=== PATIENT | female | born 1965 | race Caucasian/White ===

== ENCOUNTER 2018-05-21 11:54 | Emergency (ER) | payer OTHER ==
[2018-05-21] MEDS ORDERED: ONDANSETRON 4 MG/2 ML VIAL ONE (12:56)
[2018-05-21] MEDS ORDERED: FAMOTIDINE 20 MG/2 ML VIAL IV ONE (12:56)
[2018-05-21] MEDS ORDERED: NA CHLORIDE 0.9% 1,000 ML ONE (12:56)
[2018-05-21] MEDS ORDERED: MORPHINE 4 MG/ML SYR ONE (12:56)
[2018-05-21 13:02] LABS: Absolute Lymphocytes (CBC) 2.6 K/uL (0.7-4.9); Absolute Monocytes 0.6 K/uL (0.1-1.3); Absolute Neutrophil 5.3 K/uL (1.8-8.0); Basophils % 0.6 % (0-1.3); Eosinophils % 1.7 % (0-4.4); Lymphocytes % 29.9 % (15.3-44.8); MCH 29.4 pg (27.0-35.0); MCV 87.6 fL (80-100); MPV 8.5 fL (7.6-11.3); Monocytes % 7.2 % (3.3-12.3)
[2018-05-21 13:04] LABS: Protime INR 1.08
[2018-05-21 13:18] LABS: ALT/SGPT 37 U/L (12-78); AST/SGOT 36 U/L (15-37); Albumin 3.5 g/dL (3.4-5.0); Alkaline Phosphatase 121 U/L (45-117); BUN Blood Urea Nitrogen 10 mg/dL (7-18); Bicarbonate 25 mmol/L (21-32); Bilirubin Direct 0.2 mg/dL (0-0.2); Bilirubin Total 0.4 mg/dL (0.2-1.0); Glucose Level 161 mg/dL (74-106); Lipase 90 U/L (73-393); NT PRO-BNP 23 pg/mL (<125); Potassium 3.5 mmol/L (3.5-5.1); Sodium Level 138 mmol/L (136-145); Troponin (Emerg Dept Use Only) < 0.02 ng/mL (0.0-0.045)
--- NOTE | 2018-05-21 13:20 | RAD REPORT ---
EXAM DESCRIPTION: Alexy Single View05/21/2018 1:09 pm CLINICAL HISTORY: Abdominal pain COMPARISON: none FINDINGS: The lungs appear clear of acute infiltrate. The heart is normal size IMPRESSION: No acute abnormalities displayed
[2018-05-21 13:27] LABS: Urine Blood 2+ (NEG); Urine Glucose NEGATIVE (NEG); Urine Protein 1+ (NEG); Urine pH 5.5 (5.0-7.0)
--- NOTE | 2018-05-21 15:20 | RAD REPORT ---
EXAM DESCRIPTION: CT - Abdomen Pelvis W Contrast - 05/21/2018 2:56 pm CLINICAL HISTORY: Abdominal pain. Nausea COMPARISON: None. TECHNIQUE: Computed axial tomography of the abdomen and pelvis was obtained. 100 cc Isovue-300 is ad ministered intravenously. Oral contrast was given. All CT scans are performed using dose optimization technique as appropriate and may include automated exposure control or mA/KV adjustment according to patient size. FINDINGS: Fatty infiltration liver The Spleen, pancreas, adrenal and kidneys appear unremarkable. There is no evidence of diverticulitis. Fluid is present within nondilated bowel. Tiny umbilical hernia. Postsurgical changes involve lumbar spine IMPRESSION: Fluid within nondilated bowel may indicate an enteritis
--- NOTE | 2018-05-21 15:40 | EDPHYS ---
Physician Documentation [facility] Name: Abigail Goodrich Age: 52 yrs Sex: Female : 1965 Arrival Date: 05/21/2018 Time: 11:58 Bed 14 Private MD: ED Physician Lester Adame HPI: 05/21 12:26 This 52 yrs old Female presents to ER via Ambulatory with complaints of miriam Abdominal Pain. 12:26 The patient presents with abdominal pain in the upper abdomen, in the left upper miriam quadrant, abdominal distention in the upper abdomen, in the lower abdomen. Onset: The symptoms/episode began/occurred 3 day(s) ago. The patient presents to the emergency department with nausea, abdominal pain, of the left upper quadrant. Onset: The symptoms/episode began/occurred 3 day(s) ago. Possible causes: unknown. The symptoms are aggravated by nothing. Associated signs and symptoms: The patient has no apparent associated signs or symptoms. 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 - Social history:: Smoking status: Patient/guardian denies using tobacco. - Ebola Screening: : No symptoms or risks identified at this time. - Family history:: not pertinent. ROS: 12:26 Constitutional: Negative for fever, chills, and weight loss, Eyes: Negative for injury, miriam pain, redness, and discharge, ENT: Negative for injury, pain, and discharge, Neck: Negative for injury, pain, and swelling, Cardiovascular: Negative for chest pain, palpitations, and edema, Respiratory: Negative for shortness of breath, cough, wheezing, and pleuritic chest pain, Back: Negative for injury and pain, : Negative for injury, bleeding, discharge, and swelling, MS/Extremity: Negative for injury and deformity, Skin: Negative for injury, rash, and discoloration, Neuro: Negative for headache, weakness, numbness, tingling, and seizure, Psych: Negative for depression, anxiety, suicide ideation, homicidal ideation, and hallucinations, Allergy/Immunology: Negative for hives, rash, and allergies, Endocrine: Negative for neck swelling, polydipsia, polyuria, polyphagia, and marked weight changes, Hematologic/Lymphatic: Negative for swollen nodes, abnormal bleeding, and unusual bruising. 12:26 Abdomen/GI: Positive for abdominal pain, abdominal cramps, abdominal distension, of the left upper quadrant. Exam: 12:26 Constitutional: This is a well developed, well nourished patient who is awake, alert, miriam and in no acute distress. Head/Face: Normocephalic, atraumatic. Eyes: Pupils equal round and reactive to light, extra-ocular motions intact. Lids and lashes normal. Conjunctiva and sclera are non-icteric and not injected. Cornea within normal limits. Periorbital areas with no swelling, redness, or edema. ENT: Nares patent. No nasal discharge, no septal abnormalities noted. Tympanic membranes are normal and external auditory canals are clear. Oropharynx with no redness, swelling, or masses, exudates, or evidence of obstruction, uvula midline. Mucous membranes moist. Neck: Trachea midline, no thyromegaly or masses palpated, and no cervical lymphadenopathy. Supple, full range of motion without nuchal rigidity, or vertebral point tenderness. No Meningismus. Chest/axilla: Normal chest wall appearance and motion. Nontender with no deformity. No lesions are appreciated. Cardiovascular: Regular rate and rhythm with a normal S1 and S2. No gallops, murmurs, or rubs. Normal PMI, no JVD. No pulse deficits. Respiratory: Lungs have equal breath sounds bilaterally, clear to auscultation and percussion. No rales, rhonchi or wheezes noted. No increased work of breathing, no retractions or nasal flaring. Back: No spinal tenderness. No costovertebral tenderness. Full range of motion. Female : Normal external genitalia. Skin: Warm, dry with normal turgor. Normal color with no rashes, no lesions, and no evidence of cellulitis. MS/ Extremity: Pulses equal, no cyanosis. Neurovascular intact. Full, normal range of motion. Neuro: Awake and alert, GCS 15, oriented to person, place, time, and situation. Cranial nerves II-XII grossly intact. Motor strength 5/5 in all extremities. Sensory grossly intact. Cerebellar exam normal. Normal gait. Psych: Awake, alert, with orientation to person, place and time. Behavior, mood, and affect are within normal limits. 12:26 Abdomen/GI: Inspection: Bowel sounds: normal, Palpation: moderate abdominal tenderness, in the left upper quadrant, Liver: no appreciated palpable abnormalities, Hernia: not appreciated. 15:42 Musculoskeletal/extremity: DVT Exam: No signs of deep vein thrombosis. no pain, no miriam swelling, no tenderness, negative Homans' sign noted on exam, no appreciated bluish discoloration, no erythema, no increased warmth. Vital Signs: 12:09 BP 130 / 82; Pulse 84; Resp 22; Temp 96.8; Pulse Ox 100% ; Weight 108.86 kg; Height 5 sv ft. 5 in. (165.10 cm); Pain 4/10; 12:50 BP 130 / 85; Pulse 75; Resp 18 S; Pulse Ox 96% on R/A; jl7 13:30 BP 130 / 70; Pulse 77; Resp 16 S; Pulse Ox 96% on R/A; jl7 14:04 BP 113 / 87; Pulse 79; Resp 16 S; Pulse Ox 96% on R/A; Pain 1/10; jl7 15:10 BP 124 / 68; Pulse 75; Resp 17; Pulse Ox 97% on R/A; mh5 16:30 BP 126 / 70; Pulse 75; Resp 16 S; Pulse Ox 99% on R/A; jl7 12:09 Body Mass Index 39.94 (108.86 kg, 165.10 cm) sv MDM: 12:14 Patient medically screened. [facility] 12:29 Data reviewed: vital signs, nurses notes, lab test result(s), EKG, radiologic studies, [facility] CT scan, plain films. 05/21 12:25 Order name: Basic Metabolic Panel; Complete Time: 14:39 [facility] 05/21 12:25 Order name: CBC with Diff; Complete Time: 14:39 [facility] 05/21 12:25 Order name: LFT's; Complete Time: 14:39 [facility] 05/21 12:25 Order name: Magnesium; Complete Time: 14:39 [facility] 05/21 12:25 Order name: NT PRO-BNP; Complete Time: 14:39 [facility] 05/21 12:25 Order name: PT-INR; Complete Time: 14:39 [facility] 05/21 12:25 Order name: Troponin (emerg Dept Use Only); Complete Time: 14:39 [facility] 05/21 12:25 Order name: XRAY Chest (1 view); Complete Time: 14:39 [facility] 05/21 12:25 Order name: Lipase; Complete Time: 14:39 [facility] 05/21 12:25 Order name: Urine Culture [facility] 05/21 12:25 Order name: CT Abd/Pelvis - W/Contrast; Complete Time: 15:35 [facility] 05/21 12:38 Order name: Urine Dipstick--Ancillary (enter results); Complete Time: 14:39 05/21 12:38 Order name: Urine --Ancillary (enter results); Complete Time: 14:39 05/21 12:25 Order name: EKG; Complete Time: 12:27 [facility] 05/21 12:25 Order name: Cardiac monitoring; Complete Time: 13:02 [facility] 05/21 12:25 Order name: EKG - Nurse/Tech; Complete Time: 13:02 [facility] 05/21 12:25 Order name: IV Saline Lock; Complete Time: 13:02 [facility] 05/21 12:25 Order name: Labs collected and sent; Complete Time: 13:02 [facility] 05/21 12:25 Order name: O2 Per Protocol; Complete Time: 13:02 [facility] 05/21 12:25 Order name: O2 Sat Monitoring; Complete Time: 13:02 [facility] 05/21 12:25 Order name: Urine Dipstick-Ancillary (obtain specimen); Complete Time: 13:01 [facility] Administered Medications: 12:45 Drug: NS 0.9% 1000 ml Route: IV; Rate: 125 ml/hr; Site: left antecubital; jl7 16:06 Follow up: IV Status: Order to discontinue infusion; Changed rate to blous jl7 12:47 Drug: Pepcid 20 mg Route: IVP; Site: left antecubital; jl7 13:15 Follow up: Response: No adverse reaction jl7 12:55 Drug: Zofran 4 mg Route: IVP; Site: left antecubital; jl7 13:15 Follow up: Response: No adverse reaction jl7 12:58 Drug: morphine 4 mg Route: IVP; Site: left antecubital; 7 13:15 Follow up: Response: No adverse reaction; Pain is decreased 7 15:50 Drug: Cipro 400 mg Volume: 200 ml; Route: IVPB; Infused Over: 60 mins; Site: right jl7 antecubital; 16:50 Follow up: Response: No adverse reaction; IV Status: Completed infusion 7 16:05 Drug: Flagyl 500 mg Volume: 100 ml; Route: IVPB; Rate: 200 ml/hr; Infused Over: 30 jl7 mins; Site: right antecubital; 16:35 Follow up: Response: No adverse reaction; IV Status: Completed infusion 7 16:05 Drug: NS 0.9% 1000 ml Route: IV; Rate: 1 bolus; Site: right antecubital; 7 16:59 Follow up: IV Status: Completed infusion 7 Disposition: 05/21/18 15:39 Discharged to Home. Impression: Abdominal tenderness, Vomiting, Diarrhea, unspecified, Type 2 diabetes mellitus. - Condition is Stable. - Discharge Instructions: Food Choices to Help Relieve Diarrhea, Adult, Diarrhea, Adult, Nausea and Vomiting, Adult, Nausea and Vomiting, Adult, Qqrw-or-Dbme, Abdominal Pain, Adult, Yorg-mu-Ohdy, Diarrhea, Adult, Wuov-ga-Qrki. - Prescriptions for Bentyl 20 mg Oral Tablet - take 1 tablet by ORAL route every 6 hours As needed; 20 tablet. Flagyl 500 mg Oral Tablet - take 1 tablet by ORAL route every 12 hours for 7 days; 14 tablet. Pepcid 20 mg Oral Tablet - take 1 tablet by ORAL route every 12 hours for 10 days; 20 tablet. Zofran 4 mg Oral Tablet - take 1 tablet by ORAL route every 12 hours As needed; 20 tablet. Cipro 500 mg Oral Tablet - take 1 tablet by ORAL route every 12 hours for 7 days; 14 tablet. - Medication Reconciliation Form, Thank You Letter, Antibiotic Education, Prescription Opioid Use form. - Follow up: Private Physician; When: 2 - 3 days; Reason: Recheck today's complaints, Continuance of care, Re-evaluation by your physician. Follow up: Herbert Cuello MD; When: 2 - 3 days; Reason: Recheck today's complaints, Re-evaluation by your physician. - Problem is new. - Symptoms have improved. Signatures: Dispatcher [employer] Mercy Meredith, RN Lester James MD MD cha Leal, Jahala, RN RN jl7 Corrections: (The following items were deleted from the chart) 15:42 15:39 05/21/2018 15:39 Discharged to Home. Impression: Abdominal tenderness; Vomiting; miriam Diarrhea, unspecified. Condition is Stable. Forms are Medication Reconciliation Form, Thank You Letter, Antibiotic Education, Prescription Opioid Use. Follow up: Private Physician; When: 2 - 3 days; Reason: Recheck today's complaints, Continuance of care, Re-evaluation by your physician. Problem is new. Symptoms have improved. [facility] 15:42 15:42 05/21/2018 15:39 Discharged to Home. Impression: Abdominal tenderness; Vomiting; miriam Diarrhea, unspecified. Condition is Stable. Discharge Instructions: Food Choices to Help Relieve Diarrhea, Adult, Diarrhea, Adult, Nausea and Vomiting, Adult, Nausea and Vomiting, Adult, Yatq-aj-Dayo, Abdominal Pain, Adult, Vjan-xz-Ejsn, Diarrhea, Adult, Fies-yd-Apgo. Prescriptions for Bentyl 20 mg Oral Tablet - take 1 tablet by ORAL route every 6 hours As needed; 20 tablet, Flagyl 500 mg Oral Tablet - take 1 tablet by ORAL route every 12 hours for 7 days; 14 tablet, Pepcid 20 mg Oral Tablet - take 1 tablet by ORAL route every 12 hours for 10 days; 20 tablet, Zofran 4 mg Oral Tablet - take 1 tablet by ORAL route every 12 hours As needed; 20 tablet, Cipro 500 mg Oral Tablet - take 1 tablet by ORAL route every 12 hours for 7 days; 14 tablet. and Forms are Medication Reconciliation Form, Thank You Letter, Antibiotic Education, Prescription Opioid Use. Follow up: Private Physician; When: 2 - 3 days; Reason: Recheck today's complaints, Continuance of care, Re-evaluation by your physician. Follow up: Herbert Cuello; When: 2 - 3 days; Reason: Recheck today's complaints, Re-evaluation by your physician. Problem is new. Symptoms have improved. [facility] 17:01 15:42 05/21/2018 15:39 Discharged to Home. Impression: Abdominal tenderness; Vomiting; jl7 Diarrhea, unspecified; Type 2 diabetes mellitus. Condition is Stable. Discharge Instructions: Food Choices to Help Relieve Diarrhea, Adult, Diarrhea, Adult, Nausea and Vomiting, Adult, Nausea and Vomiting, Adult, Wfrc-ff-Qcxe, Abdominal Pain, Adult, Iurl-ak-Bglc, Diarrhea, Adult, Jhuw-yt-Acta. Prescriptions for Bentyl 20 mg Oral Tablet - take 1 tablet by ORAL route every 6 hours As needed; 20 tablet, Flagyl 500 mg Oral Tablet - take 1 tablet by ORAL route every 12 hours for 7 days; 14 tablet, Pepcid 20 mg Oral Tablet - take 1 tablet by ORAL route every 12 hours for 10 days; 20 tablet, Zofran 4 mg Oral Tablet - take 1 tablet by ORAL route every 12 hours As needed; 20 tablet, Cipro 500 mg Oral Tablet - take 1 tablet by ORAL route every 12 hours for 7 days; 14 tablet. and Forms are Medication Reconciliation Form, Thank You Letter, Antibiotic Education, Prescription Opioid Use. Follow up: Private Physician; When: 2 - 3 days; Reason: Recheck today's complaints, Continuance of care, Re-evaluation by your physician. Follow up: Herbert Cuello; When: 2 - 3 days; Reason: Recheck today's complaints, Re-evaluation by your physician. Problem is new. Symptoms have improved. miriam
--- NOTE | 2018-05-21 15:40 | ER ---
Nurse's Notes [facility] Name: Abigail Goodrich Age: 52 yrs Sex: Female : 1965 Arrival Date: 05/21/2018 Time: 11:58 Bed 14 Private MD: Diagnosis: Abdominal tenderness;Vomiting;Diarrhea, unspecified;Type 2 diabetes mellitus Presentation: 05/21 12:06 Presenting complaint: Patient states: LLQ pain, nausea and diarrhea started Sunday. c/o sv pain worse with deep breathing. Transition of care: patient was not received from another setting of care. Onset of symptoms was May 19, 2018. Care prior to arrival: None. 12:06 Method Of Arrival: Ambulatory sv 12:06 Acuity: FERDINAND 3 sv 16:07 Risk Assessment: Do you want to hurt yourself or someone else? Patient reports no jl7 desire to harm self or others. Initial Sepsis Screen: Does the patient meet any 2 criteria? Yes Does the patient have a suspected source of infection? No. Patient's initial sepsis screen is negative. 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 - Social history:: Smoking status: Patient/guardian denies using tobacco. - Ebola Screening: : No symptoms or risks identified at this time. - Family history:: not pertinent. Screenin:04 Abuse screen: Denies threats or abuse. Denies injuries from another. Nutritional jl7 screening: No deficits noted. Tuberculosis screening: No symptoms or risk factors identified. Fall Risk IV access (20 points). Total Rene Fall Scale indicates No Risk (0-24 pts). Assessment: 12:30 General: Appears in no apparent distress. uncomfortable, Behavior is calm, cooperative, jl7 appropriate for age. Pain: Complains of pain in left upper quadrant Pain does not radiate. Pain currently is 2 out of 10 on a pain scale. at worst was 9 out of 10 on a pain scale. Is intermittent. Neuro: Level of Consciousness is awake, alert, obeys commands, Oriented to person, place, time, situation. Cardiovascular: Patient's skin is warm and dry. Respiratory: Airway is patent Respiratory effort is even, unlabored, Respiratory pattern is regular, symmetrical. GI: Abdomen is round non-distended, Stools are reported to be diarrhea. Bowel sounds present X 4 quads. Abd is soft and non tender X 4 quads. : No signs and/or symptoms were reported regarding the genitourinary system. EENT: No signs and/or symptoms were reported regarding the EENT system. Derm: Skin is pink, warm \T\ dry. Musculoskeletal: No signs and/or symptoms reported regarding the musculoskeletal system. 14:07 Reassessment: Patient appears in no apparent distress at this time. Patient and/or [facility] family updated on plan of care and expected duration. Pain level reassessed. Patient is alert, oriented x 3, equal unlabored respirations, skin warm/dry/pink. 15:09 Reassessment: Pt returned from CT, reports mild increase in pain, reports she does not [facility] want any medication for pain at this time, reports the pain isn't too bad at this time. 15:42 Reassessment: Pt will be discharged once medications are finished infusing. jl 16:30 Reassessment: Patient appears in no apparent distress at this time. No changes from [facility] previously documented assessment. Patient and/or family updated on plan of care and expected duration. Pain level reassessed. Patient is alert, oriented x 3, equal unlabored respirations, skin warm/dry/pink. Vital Signs: 12:09 BP 130 / 82; Pulse 84; Resp 22; Temp 96.8; Pulse Ox 100% ; Weight 108.86 kg; Height 5 sv ft. 5 in. (165.10 cm); Pain 4/10; 12:50 BP 130 / 85; Pulse 75; Resp 18 S; Pulse Ox 96% on R/A; jl7 13:30 BP 130 / 70; Pulse 77; Resp 16 S; Pulse Ox 96% on R/A; jl7 14:04 BP 113 / 87; Pulse 79; Resp 16 S; Pulse Ox 96% on R/A; Pain 1/10; jl7 15:10 BP 124 / 68; Pulse 75; Resp 17; Pulse Ox 97% on R/A; mh5 16:30 BP 126 / 70; Pulse 75; Resp 16 S; Pulse Ox 99% on R/A; jl7 12:09 Body Mass Index 39.94 (108.86 kg, 165.10 cm) sv ED Course: 11:58 Patient arrived in ED. rg4 12:07 Triage completed. sv 12:09 Arm band placed on Patient placed in an exam room, on a stretcher. sv 12:14 Lester Adame MD is Attending Physician. miriam 12:15 Renae Islas RN is Primary Nurse. jl7 12:35 Missed attempt(s): 22 gauge in left forearm. jl7 12:40 Initial lab(s) drawn, by pa, sent to lab. Inserted saline lock: 22 gauge in left jl7 antecubital area, using aseptic technique. Blood collected. 12:54 EKG done, by technical instructor course developer. reviewed by Lester Adame MD. dt2 13:04 Patient has correct armband on for positive identification. Placed in gown. Bed in low jl7 position. Call light in reach. Side rails up X 1. monitor and storage bin tender on. Pulse ox on. NIBP on. Warm blanket given. 13:10 XRAY Chest (1 view) In Process Unspecified. EDMS 14:54 CT completed. Patient tolerated procedure well. Patient moved to CT via wheelchair. Patient moved back from CT. 14:56 CT Abd/Pelvis - W/Contrast In Process Unspecified. EDMS 15:42 Herbert Cuello MD is Referral Physician. miriam 16:30 No provider procedures requiring assistance completed. IV discontinued, intact, jl7 bleeding controlled, No redness/swelling at site. Pressure dressing applied. Administered Medications: 12:45 Drug: NS 0.9% 1000 ml Route: IV; Rate: 125 ml/hr; Site: left antecubital; jl7 16:06 Follow up: IV Status: Order to discontinue infusion; Changed rate to blous jl7 12:47 Drug: Pepcid 20 mg Route: IVP; Site: left antecubital; jl7 13:15 Follow up: Response: No adverse reaction jl7 12:55 Drug: Zofran 4 mg Route: IVP; Site: left antecubital; jl7 13:15 Follow up: Response: No adverse reaction jl7 12:58 Drug: morphine 4 mg Route: IVP; Site: left antecubital; jl7 13:15 Follow up: Response: No adverse reaction; Pain is decreased jl7 15:50 Drug: Cipro 400 mg Volume: 200 ml; Route: IVPB; Infused Over: 60 mins; Site: right jl7 antecubital; 16:50 Follow up: Response: No adverse reaction; IV Status: Completed infusion jl7 16:05 Drug: Flagyl 500 mg Volume: 100 ml; Route: IVPB; Rate: 200 ml/hr; Infused Over: 30 jl7 mins; Site: right antecubital; 16:35 Follow up: Response: No adverse reaction; IV Status: Completed infusion jl7 16:05 Drug: NS 0.9% 1000 ml Route: IV; Rate: 1 bolus; Site: right antecubital; jl7 16:59 Follow up: IV Status: Completed infusion jl7 Outcome: 15:39 Discharge ordered by MD. pineda 17:01 Discharged to home ambulatory. jl7 17:01 Condition: stable 17:01 Discharge instructions given to patient, Instructed on discharge instructions, follow up and referral plans. medication usage, Demonstrated understanding of instructions, follow-up care, medications. 17:01 Patient left the ED. Signatures: Dispatcher [employer] Mercy Meredith RN RN sv Anderson, Corey, MD MD cha Jones, Susan sj Garcia, Rubi rg4 Martinez, Maria Renae Cortez RN RN jl7 Yohana Jara dt2
[2018-05-21] MEDS ORDERED: METRONIDAZOLE 500mg IVPB 500 MG/100 ML BAG IV ONE (15:54)
[2018-05-21] MEDS ORDERED: CIPROFLOXACIN 400mg IV 400 MG/200 ML BAG IV ONE (15:54)
--- NOTE | 2018-05-21 22:41 | EKG ---
Test Date: 2018-05-21 Test Time: 12:46:34 Slag Expander: GIANNI MEASUREMENT RESULTS: Intervals: Rate: 67 RI: 162 QRSD: 68 QT: 428 QTc: 452 [place]: P: 38 RI: 162 QRS: 9 T: 50 INTERPRETIVE STATEMENTS: Normal sinus rhythm Nonspecific T wave abnormality Abnormal ECG No previous ECG available for comparison Electronically Signed On 05-21-18 22:40:24 SUPERVISOR [employer] OFFICE by Gulshan Connor
== END 2018-05-21 17:01 | disposition home or self-care (01) ==
LOC: ER 11:54
DX: R11.10 Vomiting, unspecified (principal); R19.7 Diarrhea, unspecified; E11.9 Type 2 diabetes mellitus without complications; I10 Essential (primary) hypertension; Z88.5 Allergy status to narcotic agent; Z88.8 Allergy status to other drugs, medicaments and biological substances; Z91.040 Latex allergy status; Z91.048 Other nonmedicinal substance allergy status
CPT/HCPCS: 36415; 71045; 74177; 80048; 80076; 81003; 81025; 83690; 83735; 83880; 84484; 85025; 85610; 87077; 87086; 87088; 87186; 93005; 96361; 96365; 96375; 99285; J0744; J2405; J7030; Q9967

== ENCOUNTER 2020-12-04 15:56 | Emergency (ER) | payer OTHER ==
--- OUTSIDE RECORDS SUMMARY | 2020-12-04 16:01 | XMS REPORT | Continuity of Care Document ---
:1965 Author Organization [facility] t Address [address] [place] [address] Care Team Providers Name Role Phone Alexis Vieyra Attending Clinician Tomy Patterson Attending Clinician Payers Payer Name Policy Type Policy Number Effective Date Expiration Date S ource Problems Condition Condition Condition Status Onset Resolution Last Treating Co mments Source Name Details Category Date Date Treatment Clinician Date Steatosis Steatosis Problem Active Kori marvel of liver of Liver 4-05 Family 00:00: Practic 00 e Systemic Systemic Problem Active 2019-06 Knight ge lupus Lupus 2-18 Family erythemato Erythemato 00:00: Pr actic vibha vibha 00 e Anxiety Anxiety Problem Active [place] disorder Disorder 3-19 Family 00:00: Practic 00 e Osteoarthr Osteoarthr Problem Active 2018-06 V illage itis itis 1-15 Family 00:00: Practic 00 e Fibromyalg Fibromyalg Problem Active 2018-06 V illage ia ia 1-15 Family 00:00: Practic 00 e Irritable Irritable Problem Active Kori marvel bowel Bowel 5-16 Family syndrome Syndrome 00:00: Practi c 00 e SORE Diagnosis Active 2018-08-18 Mem oria THROAT 3-03 12:33:00 l SORE 00:00: Serafin THROAT 00 Active 08/18/2018 [facility] Insomnia Insomnia Problem Active Eugene aguilera 9-12 Family 00:00: Practic 00 e Body mass Body Mass Problem Active Kori marvel index 40+ Index 40+ 1-09 Fami ly - severely - Severely 00:00: Pr actic obese Obese 00 e Diabetes Diabetes Problem Active Eugene aguilera mellitus Mellitus 1-08 Family 00:00: Practic 00 e Hyperlipid Hyperlipid Problem Active V illage emia emia 1-08 Family 00:00: Practic 00 e Depressive Depressive Problem Active V illage disorder Disorder 1-08 Family 00:00: Practic 00 e Obstructiv Obstructiv Problem Active V illage e sleep e Sleep 08 Family apnea Apnea 00:00: Practic syndrome Syndrome 00 e Hypertensi Hypertensi Problem Active V illage ve ve -08 Family disorder Disorder 00:00: Practi c 00 e Atrial Atrial Problem Active [facility]illati [facility] e Seasonal Seasonal Problem Active Eugene aguilera allergy Allergy 1-08 Family 00:00: Practic 00 e Conduction Problem Active 2018-08-20 M emoria disorder 09-25 22:50:41 l of the 00:00: [place] heart 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 [facility] Knee pain Problem Active 2018-08-20 Me moria (finding) 10-06 22:50:41 l Knee 00:00: [place] pain 00 (finding) Active 10/06/2013 Problem 08/20/2018 Data migrated from [employer] on 11/16/14. [facility] Mixed Problem Active 2018-08-20 Memor ia anxiety 6-14 22:50:41 l and Mixed 00:00: Serafin depressive anxiety 00 disorder and (disorder) depressive disorder (disorder) Active 11/29/2012 Problem 08/20/2018 Data migrated from [employer] on 11/16/14. [facility] Low back Problem Active 2018-08-20 Mem oria pain 06-26 22:50:41 l (disorder) Low back 00:00: He rmann pain 00 (disorder) Active 06/26/2012 Problem 08/20/2018 Data migrated from [employer] on 11/16/14. [facility] Hyperlipid Problem Active 2018-08-20 M emoria emia 08-18 22:50:41 l (disorder) 00:00: Pastor valdez Hyperlipid 00 emia (disorder) Active 08/18/2010 Problem 08/20/2018 Data migrated from [employer] on 11/16/14. [facility] Diabetes Problem Active 2018-08-20 Mem oria mellitus 11-21 22:50:41 l type 2 Diabetes 00:00: Pastor valdez (disorder) mellitus 00 type 2 (disorder) Active 11/22/2007 Problem 08/20/2018 Data migrated from [employer] on 11/16/14. [facility] Lupus Problem Active 2018-08-20 Memor ia erythemato 22:50:41 l vibha Lupus Serafin (disorder) erythemato vibha (disorder) Active Problem 08/20/2018 [facility] Persistent Problem Active 2018-08-20 M emoria insomnia 22:50:41 l (disorder) Pastor valdez Persistent insomnia (disorder) Active Problem 08/20/2018 [facility] Streptococ Problem Resolve 2018-08-20 2018-08-20 Memoria chantale sore d - 22:50:41 22:50:41 l throat 00:00: Serafin (disorder) Streptococ 00 chantale sore throat (disorder) Resolved 09/07/2010 Problem 08/20/2018 Data migrated from [employer] on 01/01/15. [facility] Pharyngiti Problem Resolve 2009-062018-08-20 2018-08-20 Memoria s d 2-14 22:50:41 22:50:41 l (disorder) 00:00: Pastor valdez Pharyngiti 00 s (disorder) Resolved 05/31/2010 Problem 08/20/2018 Data migrated from [employer] on 01/01/15. [facility] Cellulitis Problem Resolve 2018-08-20 2018-08-20 Memoria and d 11-21 22:50:41 22:50:41 l abscess of 00:00: Pastor n lower limb Cellulitis 00 (disorder) and abscess of lower limb (disorder) Resolved 11/22/2007 Problem 08/20/2018 Data migrated from [employer] on 01/01/15. [facility] Influenza Problem Resolve 2018-08-20 2018-08-20 Memoria (disorder) d 08-13 22:50:41 22:50:41 l 00:00: Serafin Influenza 00 (disorder) Resolved 08/13/2007 Problem 08/20/2018 Data migrated from [employer] on 01/01/15. [facility] Cellulitis Problem Resolve 2006-062018-08-20 2018-08-20 Memoria and d 22:50:41 22:50:41 l abscess of 00:00: Pastor n face Cellulitis 00 (disorder) and abscess of face (disorder) Resolved 03/19/2007 Problem 08/20/2018 Data migrated from [employer] on 01/01/15. [facility] History of Past Illness Condition Condition Condition Status Onset Resolution Last Treating Co mments Source Name Details Category Date Date Treatment Clinician Date Pain in Problem 2018-08-20 2018-08-20 Memoria left 08-18 22:50:41 22:50:41 l shoulder Pain in 06:00: Sanna nn left 00 shoulder 9 08/20/2018 [facility] Acute Problem 2018-08-20 2018-08-20 M emoria pharyngiti 08-18 22:50:41 22:50:41 l s, Acute 06:00: [place] unspecifie pharyngiti 00 d s, unspecifie d 08/18/2018 08/20/2018 [facility] Allergies, Adverse Reactions, Alerts Allergy Allergy Status Severity Reaction(s) Onset Inactive Treating Comm ents Source Name Type Date Date Clinician pioglita DA Active [facility] zone HCl 08-26 [place] 00:00: Orthope 00 [facility] Penicill DA Active [facility] ins 08-26 00:00: Orthope 00 dic Hosp[facility] Chondroi DA Active SC [facility] tin 08-26 [place] Analogue 00:00: Orthope s 00 dic Hospita l hydrocod DA Active MO 2020-0 [facility] one 3-11 [place] 00:00: Orthope 00 dic Hospita l metaxalo DA Active SV 2020-0 [facility] ne 3-11 [place] 00:00: Orthope 00 dic Hospita l adhesive DA Active MO 2020-0 [facility] tape 3-11 [place] 00:00: Orthope 00 dic Hospita l amoxicil DA Active SV 2020-0 [facility] bere 3-11 [place] 00:00: Orthope 00 dic Hospita l glucosam DA Active SV 2020-0 [facility] ine 3-11 [place] 00:00: Orthope 00 dic Hospita l latex DA Active SV 2020-0 [facility] 3-11 [place] 00:00: Orthope 00 dic Hospita l amoxicil DA Active SV 2019-0 [facility] bere 8-13 Clear 00:00: Adames 00 [facility] glucosam DA Active SV 2019-0 [facility] ine 8-13 Clear 00:00: Adames 00 [facility] latex DA Active SV 2019-0 HCA 8-13 Clear 00:00: Adames 00 [facility] pioglita DA Active SV 2019-0 [facility] zone HCl 8-13 Clear 00:00: Adames 00 [facility] acetamin DA Active U 2019-0 [facility] ophen 8-13 [place] 00:00: Orthope 00 dic Hospita l Penicill DA Active SV 2019-0 [facility] ins 8-13 Clear 00:00: Adames 00 [facility] Chondroi DA Active SC 2019-0 [facility] tin 8-13 Clear Analogue 00:00: Adames s 00 [facility] hydrocod DA Active MO 2019-0 [facility] one 8-13 Clear 00:00: Adames 00 [facility] metaxalo DA Active SV 2019-0 [facility] ne 8-13 Clear 00:00: Adames 00 [facility] adhesive DA Active MO 2019-0 [facility] tape 8-13 Clear 00:00: Adames 00 [facility] pioglita DA Active SV 2019-0 [facility] zone HCl 8-09 [facility] [place] Penicill DA Active SV 2019-0 [facility] ins 8-09 [facility] [place] Chondroi DA Active SC 2019-0 [facility] tin 8-09 [facility] Analogue 00:00: [facility]osp[facility] 00 [facility] [place] hydrocod DA Active MO 2019-0 [facility] one 8-09 [facility] 00:[facility]: [facility] [place] acetamin DA Active U 2019-0 [facility] ophen 8- [facility] 00:[facility]: [facility] [place] metaxalo DA Active SV 2019-0 [facility] ne 8- [facility] 00:[facility]: [facility] [place] adhesive DA Active MO 2019-0 [facility] tape 8 [facility] 00:[facility]: [facility] [place] amoxicil DA Active SV 2019-0 [facility] bere 8- [facility] 00:00: [facility] [place] glucosam DA Active SV 2018-0 [facility] ine 8- [facility] 00:00: [facility] [place] latex DA Active SV 2019-0 [facility] 8- [facility] 00:00: [facility] [place] acetamin DA Active U 2016- [facility] ophen 0-06 Clear 00:00: Adames 00 [facility] pioglita DA Active SV 0 HCA zone HCl 3-16 Clear 00:00: Adames 00 [facility] Penicill DA Active SV 0 H[facility] ins 3-16 Clear 00:00: Adames 00 [facility] metaxalo DA Active SV 2017-0 H[facility] ne 3-16 Clear 00:00: Adames 00 [facility] glucosam DA Active SV 2016-0 [facility] ine 3-16 Clear 00:00: Adames 00 [facility] hydrocod DA Active MO 2014-06 [facility] one 2-17 Clear 00:00: Adames 00 [facility] amoxicil DA Active SV 2014-06 [facility] bere 2-17 Clear 00:00: Adames 00 [facility] latex DA Active SV 2014-06 HCA 2-17 Clear 00:00: Adames 00 [facility] pioglita pioglita Active 2006-06 Memori a zone<sup zone<sup 0-02 l >3</sup> >3</sup> 05:00: Pastor valdez 00 Latex<quesada Latex<quesada Active 2006-06 Memori a p>4</sup p>4</sup 0-02 l > > 05:00: Serafin 00 amoxicil amoxicil Active 2006-06 Memori a bere<sup> bere<sup> 0-02 l 1</sup> 1</sup> 05:00: 00 metaxalo metaxalo Active 2006-06 Memori a ne<sup>2 ne<sup>2 0-02 l </sup> </sup> 05:00: 00 Actos Allergy Active Vomiting [place] to Family substanc Practic e e Glucosam Allergy Active [place] ine to Family substanc Practic e e Latex Allergy Active [place] to Family substanc Practic e e LORTAB Allergy Active Itching [place] to Family substanc Practic e e Skelaxin Allergy Active [place] to Family substanc Practic e e penicill penicill Active Memori a ins ins l [place] HYDROcod HYDROcod Active Memori a one one l [place] Social History Social Habit Start Date Stop Date Quantity Comments Source Social History 2014-09-26 2014-09-[address] [facility] 04:59:00 04:59:00 Smoking Status Start Date Stop Date Source Social History 2018-08-18 18:47:08 2018-08-18 18:47:08 [facility] Medications Ordered Filled Start Stop Current Ordering Indication Dosage Frequency Signature Comments Components Source Medication Medication Date Date Medication? Clinician (SIG) Name Name Ibuprofen Yes 800 mg = 1 Me moria 800 MG Oral 3-03 tab, PO, l Tablet 20:01: Q8H, PRN [place] [Motrin] 00 Pain, Take with food, X 7 day, # 20 tab, 0 Refill(s) amitriptyli amitriptyli No amitriptyl [facility] ne 25 mg ne 25 mg ine 25 mg Fa chun tablet TAKE tablet TAKE tablet Practic 1 TABLET(S) 1 TABLET(S) TAKE 1 e NEEDED NEEDED TABLET(S) BY ORAL BY ORAL NEEDED ROUTE IN ROUTE IN BY ORAL THE THE ROUTE IN EVENING. EVENING. THE EVENING. Aspir-81 mg Aspir-81 mg No 1 Q1D Aspir-81 [place] tablet,micky tablet,micky mg F amily yed release yed release tablet,del Practic Take 1 Take 1 ayed e tablet tablet release every day every day Take 1 by oral by oral tablet route. route. every day by oral route. butalbital- butalbital- No 1 Q8H butalbital [facility] acetaminoph acetaminoph -acetamino Family en-caffeine en-caffeine phen-caffe Practic 50 mg-325 50 mg-325 ine 50 e mg-40 mg mg-40 mg mg-325 tablet Take tablet Take mg-40 mg 1 tablet 1 tablet tablet every 8 every 8 Take 1 hours by hours by tablet oral route oral route every 8 as needed. as needed. hours by prn prn oral route moderate moderate as needed. headache headache prn moderate headache carvedilol carvedilol No carvedilol [facility] 6.25 mg 6.25 mg 6.25 mg Family tablet TAKE tablet TAKE tablet Practic 1 TABLET BY 1 TABLET BY TAKE 1 e MOUTH TWICE MOUTH TWICE TABLET BY A DAY A DAY MOUTH TWICE A DAY diazepam 5 diazepam 5 No diazepam 5 Village mg tablet mg tablet mg tablet Family per GI per GI per GI Practic e gabapentin gabapentin No gabapentin [facility] 300 mg 300 mg 300 mg Family capsule per capsule per capsule Practic rheum rheum per rheum e lovastatin lovastatin No 1 Q1D lovastatin [facility] 20 mg 20 mg 20 mg Family tablet Take tablet Take tablet Practic 1 tablet 1 tablet Take 1 e every day every day tablet by oral by oral every day route. route. by oral route. meloxicam meloxicam No meloxicam [facility] 15 mg 15 mg 15 mg Family tablet per tablet per tablet per Practic ortho ortho ortho e methocarbam methocarbam No methocarba [facility] ol 750 mg ol 750 mg mol 750 mg Family tablet tablet tablet Practic e OneTouch OneTouch No OneTouch Kori marvel Ultra Blue Ultra Blue Ultra Blue Family Test Strip Test Strip Test Strip Practic USE TO TEST USE TO TEST USE TO e BLOOD SUGAR BLOOD SUGAR TEST BLOOD 4 TIMES A 4 TIMES A SUGAR 4 DAY DAY TIMES A DAY paroxetine paroxetine No 1 Q1D paroxetine [facility] 40 mg 40 mg 40 mg Family tablet Take tablet Take tablet Practic 1 tablet 1 tablet Take 1 e every day every day tablet by oral by oral every day route. route. by oral route. Soliqua Soliqua No 25unit( BID Soliqua Kori marvel 100/33 100 100/33 100 s) 100/33 Family unit-33 unit-33 100 Practic mcg/mL mcg/mL unit-33 e subcutaneou subcutaneou mcg/mL s insulin s insulin subcutaneo pen Inject pen Inject us insulin 25 units 25 units pen Inject twice a day twice a day 25 units by by twice a subcutaneou subcutaneou day by s route. s route. subcutaneo us route. Immunizations Ordered Immunization Filled Immunization Date Status Commen ts Source Name Name [facility]-COV-2 (COVID-19) SARS-COV-2 (COVID-19) 2020-09-12 Completed [facility] Family vaccine, UNSPECIFIED vaccine, UNSPECIFIED 00:00:00 Practice influenza, influenza, 2020-06-04 Completed [facility] recombinant, recombinant, 13:39:00 Practice quadrIvalent,injectab quadrIvalent,injectab le, preservative free le, preservative free zoster recombinant zoster recombinant 2020-06-04 Completed [facility] Family 13:22:00 Practice influenza, influenza, 2019-05-02 Completed [facility] recombinant, recombinant, 14:16:00 Practice quadrIvalent,injectab quadrIvalent,injectab le, preservative free le, preservative free pneumococcal pneumococcal 2018-10-31 Completed [facility] Fa chun polysaccharide PPV23 polysaccharide PPV23 17:22:00 Practice Tdap Tdap 2012-06-18 Completed [facility] 00:00:00 Practice Vital Signs Vital Name Observation Time Observation Value Comments Source BP Diastolic 2020-09-20 00:00:00 69 mm[Hg] [facility] Height 2020-09-20 00:00:00 65 [in_i] [facility] Practice BMI (Body Mass Index) 2020-09-20 00:00:00 40.4 kg/m2 [facility] BP Systolic 2020-09-20 00:00:00 105 mm[Hg] [facility] Body Weight 2020-09-20 00:00:00 243 [lb_av] [facility] BP Diastolic 2020-06-04 00:00:00 81 mm[Hg] [facility] Height 2020-06-04 00:00:00 65 [in_i] [facility] BMI (Body Mass Index) 2020-06-04 00:00:00 40.1 kg/m2 [facility] BP Systolic 2020-06-04 00:00:00 121 mm[Hg] [facility] Body Weight 2020-06-04 00:00:00 241 [lb_av] [facility] Height 2019-12-09 00:00:00 65 [in_i] [facility] BP Diastolic 2019-09-04 00:00:00 78 mm[Hg] [facility] Height 2019-09-04 00:00:00 65 [in_i] [facility] Practice BMI (Body Mass Index) 2019-09-04 00:00:00 40.1 kg/m2 [facility] BP Systolic 2019-09-04 00:00:00 126 mm[Hg] [facility] Body Weight 2019-09-04 00:00:00 240.8 [lb_av] [facility] BP Diastolic 2019-05-02 00:00:00 72 mm[Hg] [facility] Height 2019-05-02 00:00:00 65 [in_i] [facility] BMI (Body Mass Index) 2019-05-02 00:00:00 40.5 kg/m2 [facility] BP Systolic 2019-05-02 00:00:00 140 mm[Hg] [facility] Body Weight 2019-05-02 00:00:00 243.3 [lb_av] [facility] BP Diastolic 2019-01-27 00:00:00 78 mm[Hg] [facility] Height 2019-01-27 00:00:00 65 [in_i] [facility] BMI (Body Mass Index) 2019-01-27 00:00:00 40.9 kg/m2 [facility] BP Systolic 2019-01-27 00:00:00 126 mm[Hg] [facility] Body Weight 2019-01-27 00:00:00 246 [lb_av] [facility] BP Diastolic 2018-10-31 00:00:00 74 mm[Hg] [facility] Height 2018-10-31 00:00:00 65 [in_i] [facility] BMI (Body Mass Index) 2018-10-31 00:00:00 40.7 kg/m2 [facility] BP Systolic 2018-10-31 00:00:00 126 mm[Hg] [facility] Body Weight 2018-10-31 00:00:00 244.6 [lb_av] [facility] Heart Rate 2018-08-18 19:47:00 [facility] [place] Systolic (mm Hg) 2018-08-18 19:47:00 Moisés rial [place] Diastolic (mm Hg) 2018-08-18 19:47:00 Mem orial Serafin Respitory Rate 2018-08-18 19:47:00 Memori al [place] Systolic (mm Hg) 2018-08-18 17:54:00 Moisés rial Serafin Diastolic (mm Hg) 2018-08-18 17:54:00 Mem orial [place] Weight 2018-08-18 17:54:00 [facility] Ser[place] Temperature Oral (F) 2018-08-18 17:54:00 98.4 F [facility] [place] Respitory Rate 2018-08-18 17:54:00 Char Cevallos Heart Rate 2018-08-18 17:54:00 [facility] Serafin BMI Calculated 2018-08-18 17:54:00 Char Cevallos Height 2018-08-18 17:54:00 165.1 cm [facility] Procedure Date / Time Performing Clinician Source Performed US, abdomen, complete 2020-06-04 00:00:00 [facility] e [facility] Spine Surgery Procedure 2019-06-16 00:00:[address] [facility] Practice Spine Surgery Procedure 2019-05-27 00:00:00 [facility] Colonoscopy 2019-02-21 00:00:00 [facility] Total Knee Replacement 2019-01-28 00:00:00 [facility] MAMMO, screening, digital, 2018-10-31 [facility] Total Hysterectomy 2012-06-18 00:00:00 [facility] Cervical spinal fusion [facility] Cholecystectomy [facility] H/O total hysterectomy [facility] H/O total knee replacement Memor ial Serafin Hiatal hernia [facility] History of tonsillectomy Memoria l Serafin Oral surgery [facility] [place] Previous back [facility] Serafin surgery<sup>1</sup> Right elbow [facility] Serafin Right foot [facility] [place] Right knee [facility] Sling procedure of bladder Memor ial [place] neck Other [facility] Gastric Bypass for Obesity [facility] Hernia Repair [facility] Tubal Ligation [facility] Tooth Root Removal [facility] Practice Partial Hysterectomy [facility] Hysterectomy (Partial) [facility] Foot/toes Surgery [facility] Procedure Practice Elbow Arthroscopy/surgery [facility] Delivery [facility] Cholecystectomy ([facility] Bladder Removal) Practice Back Surgery [facility] Knee Surgery [facility] Tonsilectomy/adenoids [facility] Procedure on Spine [facility] Plan of Care Planned Activity Planned Date Details Comments Source Diagnostic Test 2020-09-20 CBC w/ auto diff [facility] Pending 00:00:00 [code = CBC w/ auto Practice diff] Diagnostic Test 2020-09-20 CMP, serum or plasma [facility] Pending 00:00:00 [code = CMP, serum Practice or plasma] Diagnostic Test 2020-09-20 TSH, serum or plasma [facility] Pending 00:00:00 [code = TSH, serum Practice or plasma] Diagnostic Test 2020-09-20 [facility]00 [code = lipid panel, Practic e serum] Diagnostic Test 2020-09-20 HbA1c (hemoglobin [facility] Pending 00:00:00 A1c), blood [code = Practice HbA1c (hemoglobin A1c), blood] Diagnostic Test 2020-09-20 microalbumin/creatin [facility] Family Pending 00:00:00 ine, mass ratio, Practice urine [code = microalbumin/creatin ine, mass ratio, urine] Future Scheduled Test Your labs are normal [facility] except... 1. Your Practice PONCHO is a little high. See your Hospitality Workers. 2. Your Diabetes is high. Take your meds. I know you were waiting until the new year so they would e more affordable. I recommend low carb / sugar diet and walking. I will monitor. 3. Your lipids are a little high. Take your meds. I recommend avoiding fatty foods. I will monitor. 1. U/S abd shows Fatty Liver and enlarged Liver. [code = Your labs are normal except... 1. Your PONCHO is a little high. See your Hospitality Workers. 2. Your Diabet] Future Appointment 2020-12-20 Triston Thayer, [address] [facility] 00:00:[address] [address] Instructions [facility] Encounters Start End Encounter Admission Attending Care Care Encounter Source Date/Time Date/Time Type Type Clinicians Facility Department ID 2020-09-20 2020-09-20 Triston Macario [facility] [place] - [id number] [facility] 00:00:00 00:00:00 MD Jeovany: [facility] Famil y [address] Medical - Practi [facility] [address], ([place] [address] , Ph. 2020-06-04 2020-06-04 Triston Macario [facility] [place] - [id number] [facility] 00:00:00 00:00:00 MD Jeovany: [facility] Famil y [address] Medical - Practi c [place] [place] [address], ([facility]) [place] [address] , Ph. 2019-12-09 2019-12-09 Triston Macario [facility] [place] - [id number] [facility] 00:00:00 00:00:00 MD Jeovany: [facility] [address] Medical - Practi c [place] [address] , [place] [address], ([facility]) [place] [address] , Ph. 2019-09-04 2019-09-04 Triston Macario [facility] [place] - [id number] [facility] 00:00:00 00:00:00 MD Jeovany: [facility] [address] Medical - Practi c [address] , [place] [address], ([facility]) [place] [address] , Ph. 2019-05-02 2019-05-02 Triston Macario [facility] [place] - [id number] [facility] 00:00:00 00:00:00 MD Jeovany: [facility] [address] Medical - Practi c [place], [address] [address] , Ph. 2019-01-27 2019-01-27 Triston Macario [facility] [place] - [id number] [facility] 00:00:00 00:00:00 MD Jeovany: [facility] [address] [facility] Pract[facility] [place], Practice - [address], [place] [address] , Ph. 2018-10-31 2018-10-31 Triston Macario [facility] [place] - [id number] [facility] 00:00:00 00:00:00 MD Jeovany: [facility] [address] [facility] [place], Practice - [address], [facility] [address] , Ph. 2018-08-18 2018-08-18 AMANDA Chen [facility] [id number] 11:44:00 14:07:00 Gabi [place] 2014-09-25 2014-09-25 Outpatient [facility] [id number] 15:12:00 23:59:00 Dejuan 00 Results Test Description Test Time Test Comments Results Result Sour e Comments - XR FLUORO FOR 2020-08-26 SPINE INJ 22:20:00 [facility] 1965 Sex: F Patient Name: MERA LABOY Unit No: [id number] EXAMS: CPT CODE: [id number] XR FLUORO FOR SPINE INJ 40232 LUMBAR EPIRADICULAR INJECTION REFERRAL PHYSICIAN: Teodoro Hoang M.D. PREOPERATIVE DIAGNOSIS: Lumbar Radiculitis POSTOPERATIVE DIAGNOSIS: Status post L4-S1 fusion with possible transitional degeneration and lumbar radiculitis PROCEDURES PERFORMED: Fluoroscopically guided needle localization of the bilateral L3 and bilateral L4 spinal nerves with transforaminal epidurograms and epidural injection of local anesthetic and steroid. FINDINGS: Good flow seen through all foramen and proximally with initial limited flow across the L3-4 disc. Additional volume of injectate (anterior epidural space and minimal displacement seen across the L3-4 disc. Provocation with injection was negative. Anesthetic response was positive with the patient noting complete relief of her low back and bilateral lower extremity pain. Preinjection VAS 3/10. Postinjection VAS 0/10. Steroid response pending follow-up. ESTIMATED BLOOD LOSS: Minimal ANESTHESIA: TIVA COMPLICATIONS: None DETAILS OF PROCEDURE: After obtaining stable vital signs, informed consent and IV access, with no contraindications, the patient was taken to the operating room and placed in a prone position with all extremities padded and appropriate monitors placed. The patient was sterilely prepped and draped over the lumbosacral spine. Using fluoroscopic visualization the insertion sites were marked for paravertebral approaches and using standard technique, a 25 gauge needle was advanced to the base of each pedicle without paresthesias. Isovue-300 contrast 0.2 mL of was injected incrementally with frequent negative aspirations to produce each epidurogram. There were no signs of intravascular or intrathecal uptake. Bupivicaine 0.75% 0.25 mL with lidocaine 4% 0.5 mL and Decadron 5 mg was then incrementally injected with frequent negative aspirations and again there were no signs of intravascular or intrathecal uptake. The needles were removed and the patient was taken to the PACU in good condition. Image: Image 1 Image: Image 2 Image: Image 3 [facility] NAME: MERA LABOY [address] [facility] PHYS: Maninder Cannon MD [place], [place] [address] : 1965 AGE: 54 SEX: F LOC: RUSLAN PHONE #: [phone] EXAM DATE: 08/26/2020 STATUS: REG SD FAX #: [phone] RAD #: [id number] D/C DT PAGE 1 Signed Report (CONTINUED) Patient Name: MERA LABOY Unit No: [id number] EXAMS: CPT CODE: [id number] XR FLUORO FOR SPINE INJ 96807 <Continued> at 2220 Reported and signed by: Maninder Cook M.D. CC: Technologist: MARJ ABAD. RT(R) Transcribed D/ (2220) tIGNACIO.[facility] NAME: MERA LABOY [address] [facility] PHYS: Maninder Cannon MD [place], [place] [address] : 1965 AGE: 54 SEX: F LOC: RUSLAN PHONE #: [phone] EXAM DATE: 08/26/2020 STATUS: REG [facility] FAX #: [phone] RAD #: [id number] D/C DT PAGE 2 Signed Report Patient Name: MERA LABOY Unit No: [id number] EXAMS: CPT CODE: [id number] XR FLUORO FOR SPINE INJ 82388 <Continued> Orig Print D/T: S: 08/26/2020 (2223) [facility] NAME: MERA LABOY [address] [facility] PHYS: Maninder Cannon MD [place], [place] [address] : 1965 AGE: 54 SEX: F LOC: RUSLAN PHONE #: [phone] EXAM DATE: 08/26/2020 STATUS: REG SDC FAX #: [phone] RAD #: [id number] D/C DT PAGE 3 Signed Report GLUBED 2020-08-26 11:00:00 Test Item Value Reference Range Interpretation Comme nts GLUBED (test code = GLUBED) 101 mg/dL 60-125 N [id number] 09:24:00 Test Item Value Reference Range Interpretation Comments GLUBED (test code = GLUBED) 118 mg/dL 60-125 N - CT L-SPINE W/O [id number] 10:22:00 [facility] 1965 Sex: F Patient Name: MERA LABOY Unit No: [id number] EXAMS: CPT CODE: [id number] CT L-SPINE W/O CONTRAST 40963 TECHNIQUE: Multiplanar CT images were obtained of the lumbarspine without IV contrast. COMPARISON: MR dated 06/21/2020 INDICATION: PAIN FINDINGS: Transitional lumbosacral anatomy is present. In keeping with prior numbering, 5 lumbar type vertebrae are present with a rudimentary disc at the S1-S2 level. Postoperative changes of L4-S1 posterior instrumented fusion. Pedicle screws are intact. The right L5 pedicle screw is position laterally. Interbody grafts atL4-L5 and L5-S1 appear healed. There is posterior fusion present at these levels as well. Alignment: Within normal limits Fracture: None present. Paraspinal Soft Tissues/ Retroperitoneum: Unremarkable. L1/2: No significant abnormality. L2/3: No significant abnormality. L3/4: No significant disc bulge or herniation. Mild bilateral facet hypertrophy. No definite foraminal or central canal stenosis. L4/5: Discectomy with healed interbody graft, positioned slightly right of midline.Posterior fusion is present. There is mild right foraminal stenosis. No significant left foraminal stenosis. The central canal is decompressed. L5/S1: Discectomy with healed interbody graft. Posterior fusion is present. No significant foraminal stenosis. The central canal is decompressed. IMPRESSION: L4-S1 posterior instrumented fusion with solid interbody fusion suspected at L4-L5 and L5-S1. at 1022 Reported and signed by: Andrew Sanchez M.D. [facility] NAME: MERA LABOY [address] [facility] PHYS: Mayur Tellez MD : 1965 AGE: 54 SEX: F [place] [address] LOC: Y.RAD PHONE #: [phone] EXAM DATE: 08/16/2020 STATUS: REG CLI FAX #: [phone] RAD #: [id number] D/C DT PAGE 1 Signed Report (CONTINUED) Patient Name: MERA LABOY Unit No: [id number] EXAMS: CPT CODE: [id number] CT L-SPINE W/O CONTRAST 62845 <Continued> CC: Teodoro Hoang M.D. Technologist: RT Jenni(R) CTDI: DLP: Trnscrpt: 08/16/2020 (1022) t.LIZZETHR.[facility] NAME: MERA LABOY [address] [facility] PHYS: Mayur Tellez MD : 1965 AGE: 54 SEX: F [place] LOC: Y.RAD PHONE #: [phone] EXAM DATE: 08/16/2020 STATUS: REG CLI FAX #: [phone] RAD #: [id number] D/C DT PAGE 2 Signed Report Patient Name: MERA LABOY Unit No: [id number] EXAMS: CPT CODE: [id number] CT L-SPINE W/O CONTRAST 48364 <Continued> Orig Print D/T: S: 08/16/2020 (1025) [facility] NAME: MERA LABOY [address] [facility] PHYS: Mayur Tellez MD : 1965 AGE: 54 SEX: F [place], [place] [address] LOC: Y.RAD PHONE #: [phone] EXAM DATE: 08/16/2020 STATUS: REG CLI FAX #: [phone] RAD #: [id number] D/C DT PAGE 3 Signed Report- MRI L-SPINE W/O [id number] 11:02:00 [facility] 1965 Sex: F Patient Name: MERA LABOY Unit No: [id number] EXAMS: CPT CODE: [id number] MRI L-SPINE W/O CONT 30729 MRI OF THE LUMBAR SPINE: DIAGNOSIS: 1. AtL1-2, there is no disc bulge or herniation. No central canal or foraminal stenosis. 2. At L2-3, no disc bulge or herniation. No central canal or foraminal stenosis. 3. At L3-4, disc desiccation. Mild central canal stenosis. Mild bilateral foraminal stenosis. 4. At L4-5, patient status post anterior discectomy and laminectomy. No foraminal stenosis. 5. At L5-S1, patient status post anterior discectomy and laminectomy. No foraminal stenosis. 6. Loss functional level is S1 -2. COMMENT: COMPARISON: The current exam is compared to a previous exam dated February 12, 2019. Sagittal T1, T2 and STIR and axial T1 and T2-weighted sequences are obtained of the lumbar spine. The lumbar vertebrae are within normal limits in signal. The findings are as above. The conus is in the expected location. at 1102 Reported and signed by: Cari Ortiz MD CC: Teodoro Hoang M.D. Technologist: Surendra Rucker(R) Transcribed D/ (1107) DebbieGVG [facility] NAME: MERA LABOY [address] [facility] PHYS: Mayur Tellez MD : 1965 AGE: 54 SEX: F [place] [address] LOC: Y.MRI PHONE #: [phone] EXAM DATE: 06/21/2020 STATUS: REG CLI FAX #: [phone] RAD #: [id number] D/C DT PAGE 1 Signed Report Patient Name: MERA LABOY Unit No: [id number] EXAMS: CPT CODE: [id number] MRI L-SPINE W/O CONT 03745 <Continued> Orig Print D/T: S: 06/21/2020 (1100) [facility] NAME: MERA LABOY [address] [facility] PHYS: Mayur Cancino MD : 1965 AGE: 54 SEX: F [place] [address] [facility] [id number] LOC: [place] PHONE #: [phone] EXAM DATE: 06/21/2020 STATUS: REG CLI FAX #: [phone] RAD #: [id number] D/C DT PAGE 2 Signed ReportGLUBED 2019-06-19 09:02:00 Test Item Value Reference Range Interpretation Comments GLUBED (test code = GLUBED) 125 mg/dL 60-125 N [id number] 09:02:00 Test Item Value Reference Range Interpretation Comments GLUBED (test code = GLUBED) 121 mg/dL 60-125 N [id number] 09:02:00 Test Item Value Reference Range Interpretation Comments GLUBED (test code = GLUBED) 72 mg/dL 60-125 N COMPREHENSIVE METABOLIC [id number] 06:36:00 Test Item Value Reference Range Interpretation Comments SODIUM (test code = 140 mmol/L 136-145 N NA) POTASSIUM (test code = 4.8 mmol/L 3.5-5.1 N K) CHLORIDE (test code = 103.0 mmol/L 98-107 N CL) CARBON DIOXIDE (test 21.3 mmol/L 21-32 N code = CO2) GLUCOSE (test code = 103 mg/dL 70-110 N GLU) BLOOD UREA NITROGEN 11 mg/dL 7-18 N (test code = BUN) GLOMERULAR FILTRATION 65.8 >60 Unit o f measure: RATE (test code = GFR) mL/mi n/1.73 [id number] Range:Healthy Adults >90 mL/min/1.73 m2 For Chronic Kidney Disease: St age II Mild Decrease in GFR 60-90 St age III Moderate Decrease in GFR 30-59 Stage IV Severe Decre ase in GFR 15- 29 Stage V Kidney Failure <15 CREATININE (test code 0.90 mg/dL 0.55-1.30 N = CREAT) TOTAL PROTEIN (test 7.1 g/dL 6.4-8.2 N code = PROT) ALBUMIN (test code = 3.0 g/dL 3.4-5.0 L ALB) GLOBULIN (test code = 4.1 g/dL 2.2-4.2 N GLOB) ALBUMIN/GLOBULIN RATIO 0.7 0.7-2.0 N (test code = A/G) CALCIUM (test code = 8.2 mg/dL 8.2-10.1 N CA) BILIRUBIN TOTAL (test 0.14 mg/dL 0.2-1.00 L code = BILT) SGOT/AST (test code = 29.0 U/L 15-37 N AST) SGPT/ALT (test code = 24.0 U/L 12-78 N Please note new ALT) normal range. ALKALINE PHOSPHATASE 152 U/L 46-116 H TOTAL (test code = ALKP) CBC W/AUTO [id number] 06:06:00 Test Item Value Reference Range Interpretation Comments WHITE BLOOD CELL (test code = WBC) 8.5 K/mm3 5.8-11.0 N RED BLOOD CELL (test code = RBC) 3.82 M/mm3 4.2-5.4 L HEMOGLOBIN (test code = HGB) 10.5 g/dL 12-16 L HEMATOCRIT (test code = HCT) 34.5 % 37-47 L MEAN CELL VOLUME (test code = MCV) 90 fL 80-98 N MEAN CELL HGB (test code = MCH) 27.5 pg 27-34 N MEAN CELL HGB CONCENTRATION (test 30.4 g/dL 30.8-34.1 L code = MCHC) RED CELL DISTRIBUTION WIDTH (test 14.2 % 11-16 N code = RDW) PLT (test code = PLT) 478 K/mm3 130-400 H MEAN PLATELET VOLUME (test code = 10.1 fL 8.9-12.1 N MPV) NEUTROPHIL % (test code = NT%) 46.7 % 45-70 N LYMPHOCYTE % (test code = LY%) 41.3 % 20-40 H MONOCYTE % (test code = MO%) 6.8 % 3-10 N EOSINOPHIL % (test code = EO%) 4.6 % 1-5 N BASOPHIL % (test code = BA%) 0.5 % 0.0-1.1 N NEUTROPHIL # (test code = NT#) 3.96 K/mm3 2.00-7.50 N LYMPHOCYTE # (test code = LY#) 3.50 K/mm3 1.50-4.00 N MONOCYTE # (test code = MO#) 0.58 K/mm3 0.2-0.8 N EOSINOPHIL # (test code = EO#) 0.39 K/mm3 0.04-0.4 N BASOPHIL # (test code = BA#) 0.04 K/mm3 0.02-0.10 N MANUAL DIFF REQUIRED (test code = NO MANUAL DIFF MDIFF) NUCLEATED RED BLOOD CELL (test 0 % 0-0 N code = NRBC) [id number] 05:13:00 Test Item Value Reference Range Interpretation Comments GLUBED (test code = GLUBED) 88 mg/dL 60-125 N [id number] 20:32:00 Test Item Value Reference Range Interpretation Comments GLUBED (test code = GLUBED) 195 mg/dL 60-125 H [id number] 10:12:00 Test Item Value Reference Range Interpretation Comments ISTAT-HEMOGLOBIN (test code = HBP) 13.3 g/dL 12-16 N ISTAT-HEMATOCRIT (test code = 39 % 38-51 N HCTP) ISTAT-SODIUM (test code = NAP) 143 mmol/L 138-146 N ISTAT-POTASSIUM (test code = KP) 4.4 mmol/L 3.5-4.9 N ISTAT-CHLORIDE (test code = CLP) 100 mmol/L 98-109 N ISTAT-GLUCOSE (test code = GLUP) 102 mg/dL 70-105 N ISTAT-BUN (test code = BUN-P) 9 mg/dL 8-26 N HGB [id number] 05:55:00 Test Item Value Reference Range Interpretation Comments HEMOGLOBIN (test code = HGB) 10.5 g/dL 12-16 L HEMATOCRIT (test code = HCT) 33.2 % 37-47 L [id number] 05:44:00 Test Item Value Reference Range Interpretation Comments GLUBED (test code = GLUBED) 114 mg/dL 60-125 N [id number] 05:17:00 Test Item Value Reference Range Interpretation Comments GLUBED (test code = GLUBED) 58 mg/dL 60-125 L [id number] 20:18:00 Test Item Value Reference Range Interpretation Comments GLUBED (test code = GLUBED) 135 mg/dL 60-125 H [id number] 16:36:00 Test Item Value Reference Range Interpretation Comments GLUBED (test code = GLUBED) 166 mg/dL 60-125 H [id number] 12:18:00 Test Item Value Reference Range Interpretation Comments GLUBED (test code = GLUBED) 164 mg/dL 60-125 H HGB [id number] 09:34:00 Test Item Value Reference Range Interpretation Comments HEMOGLOBIN (test code = HGB) 9.9 g/dL 12-16 L HEMATOCRIT (test code = HCT) 30.8 % 37-47 L [id number] 05:10:00 Test Item Value Reference Range Interpretation Comments GLUBED (test code = GLUBED) 169 mg/dL 60-125 H [id number] 21:14:00 Test Item Value Reference Range Interpretation Comments GLUBED (test code = GLUBED) 191 mg/dL 60-125 H [id number] 16:59:00 Test Item Value Reference Range Interpretation Comments GLUBED (test code = GLUBED) 373 mg/dL 60-125 H [id number] 12:18:00 Test Item Value Reference Range Interpretation Comments GLUBED (test code = GLUBED) 202 mg/dL 60-125 H [id number] 12:08:00 Test Item Value Reference Range Interpretation Comments GLUBED (test code = GLUBED) 186 mg/dL 60-125 H - XR SPINE 1 V SPEC [id number] 11:36:00 Patient Name: MERA LABOY Unit No: [id number] EXAMS: CPT CODE: [id number] XR SPINE 1 V SPEC LEVEL 88209 3 LATERAL INTRAOPERATIVE VIEWS OF THE LUMBAR SPINE Film 1: Probe overlies the L4 pedicle. Film 2: In progress pedicle screw placement at L4, L5 and S1. Film 3: Patient status post anterior discectomy and laminectomy at the L4-5and L5-S1 levels with interbody bone grafts and pedicle screws. Electronically Si gned by Cari Ortiz MD on 05/28/2019 at 1132 Reported and signed by: Cari Ortiz MD CC: Teodoro Hoang M.D. Technologist: MARJ ABAD. RT(R) Transcribed D/ (2128) [email or web address] [facility] NAME: MERA LABOY [address] [facility] PHYS: Mayur Tellez MD : 1965 AGE: 53 SEX: F [place] [address] LOC: Y.316 A PHONE #: [phone] EXAM DATE: 05/27/2019 STATUS: ADM IN FAX #: [phone] RAD #: [id number] D/C DT PAGE 1 Signed Report Patient Name: MERA LABOY Unit No: [id number] EXAMS: CPT CODE: [id number] XR SPINE 1 V SPEC LEVEL 63510 <Continued> Orig PrintD/T: S: 05/28/2019 (3920) [facility] NAME: MERA LABOY [address] [place] [address] PHYS: Mayur Tellez MD : 1965 AGE : 53 SEX: F [place] [address] LOC: Y.316 A PHONE#: [phone] EXAM DATE: 05/27/2019 STATUS: ADM IN FAX #: [phone] RAD #: [id number] D/C DT PAGE 2 Signed Report- XR SPINE 1 V SPEC [id number] 11:36:00 Patient Name: MERA LABOY Unit No: [id number] EXAMS: CPT CODE: [id number] XR SPINE 1 V SPEC LEVEL 46521 3 LATERAL INTRAOPERATIVE VIEWS OF THE LUMBAR SPINE Film 1: Probe overlies the L4 pedicle. Film 2: In progress pedicle screw placement at L4, L5 and S1. Film 3: Patient status post anterior discectomy and laminectomy at the L4-5and L5-S1 levels with interbody bone grafts and pedicle screws. at 1136 Reported and signed by: Cari Ortiz MD CC: Teodoro Hoang M.D. Technologist: MELVIN SORTO (RT.R) Transcribed D/ (4683) DebbieGVG [facility] NAME: MERA LABOY [address] [place] [address] PHYS: Mayur Tellez MD : 1965 AGE: 53 SEX: F [place] [address] LOC: Y.316 A PHONE #: [phone] EXAM DATE: 05/27/2019 STATUS: ADM IN FAX #: [phone] RAD #: [id number] D/C DT PAGE 1 Signed Report Patient Name: MERA LABOY Unit No: [id number] EXAMS: CPT CODE: [id number] XR SPINE 1 V SPEC LEVEL 86064 <Continued> Orig PrintD/T: S: 05/28/2019 (1139) [facility] NAME: MERA LABOY [address] [facility] PHYS: Mayur Tellez MD : 1965 AGE: 53 SEX: F [place] [address] LOC: Y.316 A PHONE#: [phone] EXAM DATE: 05/27/2019 STATUS: ADM IN FAX #: [phone] RAD #: [id number] D/C DT PAGE 2 Signed Report- XR SPINE 1 V SPEC [id number] 11:36:00 Patient Name: MERA LABOY Unit No: [id number] EXAMS: CPT CODE: [id number] XR SPINE 1 V SPEC LEVEL 05553 3 LATERAL INTRAOPERATIVE VIEWS OF THE LUMBAR SPINE Film 1: Probe overlies the L4 pedicle. Film 2: In progress pedicle screw placement at L4, L5 and S1. Film 3: Patient status post anterior discectomy and laminectomy at the L4-5and L5-S1 levels with interbody bone grafts and pedicle screws. at 1136 Reported and signed by: Cari Ortiz MD CC: Teodoro Hoang M.D. Technologist: MELVIN SORTO (RT.R) Transcribed D/ (1136) DebbieGVG [facility] NAME: MERA LABOY [address] [facility] PHYS: Mayur Tellez MD : 1965 AGE: 53 SEX: F [place] [address] LOC: Y.316 A PHONE #: [phone] EXAM DATE: 05/27/2019 STATUS: ADM IN FAX #: [phone] RAD #: [id number] D/C DT PAGE 1 Signed Report Patient Name: MERA LABOY Unit No: [id number] EXAMS: CPT CODE: [id number] XR SPINE 1 V SPEC LEVEL 57813 <Continued> Orig PrintD/T: S: 05/28/2019 (1139) [facility] NAME: MERA LABOY [address] [facility] PHYS: Mayur Tellez MD : 1965 AGE : 53 SEX: F [place], [place] [address] LOC: Y.316 A PHONE#: [phone] EXAM DATE: 05/27/2019 STATUS: ADM IN FAX #: [phone] RAD #: [id number] D/C DT PAGE 2 Signed ReportBASIC METABOLIC [id number] 07:19:00 Test Item Value Reference Range Interpretation Comments SODIUM (test code = 139 mmol/L 136-145 N NA) POTASSIUM (test code = 4.7 mmol/L 3.5-5.1 N K) CHLORIDE (test code = 101.0 mmol/L 98-107 N CL) CARBON DIOXIDE (test 25.3 mmol/L 21-32 N code = CO2) GLUCOSE (test code = 216 mg/dL 70-110 H GLU) BLOOD UREA NITROGEN 9 mg/dL 7-18 N (test code = BUN) GLOMERULAR FILTRATION 76.4 >60 Unit o f measure: RATE (test code = GFR) mL/mi n/1.73 [id number] Range:Healthy Adults >90 mL/min/1.73 m2 For Chronic Kidney Disease: St age II Mild Decrease in GFR 60-90 St age III Moderate Decrease in GFR 30-59 Stage IV Severe Decre ase in GFR 15- 29 Stage V Kidney Failure <15 CREATININE (test code 0.79 mg/dL 0.55-1.30 N = CREAT) CALCIUM (test code = 8.2 mg/dL 8.2-10.1 N CA) HGB [id number] 05:50:00 Test Item Value Reference Range Interpretation Comments HEMOGLOBIN (test code = HGB) 11.4 g/dL 12-16 L HEMATOCRIT (test code = HCT) 35.2 % 37-47 L [id number] 05:48:00 Test Item Value Reference Range Interpretation Comments GLUBED (test code = GLUBED) 242 mg/dL 60-125 H [id number] 20:32:00 Test Item Value Reference Range Interpretation Comments GLUBED (test code = GLUBED) 228 mg/dL 60-125 H [id number] 17:21:00 Test Item Value Reference Range Interpretation Comments GLUBED (test code = GLUBED) 181 mg/dL 60-125 H [id number] 17:21:00 Test Item Value Reference Range Interpretation Comments GLUBED (test code = GLUBED) 134 mg/dL 60-125 H - XR CHEST 1 [id number] 11:22:00 Patient Name: MERA LABOY Unit No: [id number] EXAMS: CPT CODE: [id number] XR CHEST 1 V 61421 IMAGES PROVIDED: One frontal view of the chest is provided. COMPARISON: None FINDINGS: Lungs are clear. The heart size and pulmonary vasculature are normal. No pleural effusion or pneumothorax. No acute fracture.IMPRESSION: No acute findings. at 1122 Reported and signed by: Andrew Sanchez M.D. CC: Teodoro Hoang M.D. Technologist: MELVIN SORTO (RT.R) Transcribed D/ (1122) t.YESENIA.[facility] NAME:MERA LABOY [address] [facility] PHYS: Mayur Tellez MD : 1965 AGE: 53 SEX: F [place], [place] [address] LOC: Y.998 2 PHONE #: [phone] EXAM DATE: 05/27/2019 STATUS: ADM IN FAX #: [phone] RAD #: [id number] D/C DT PAGE 1 Signed Report Patient Name: MERA LABOY Unit No: [id number] EXAMS: CPT CODE: [id number] XR CHEST 1 V 84053 <Continued> Orig Print D/T: S: 05/27/2019 (1354) [facility] NAME: MERA LABOY [address] [facility] PHYS: Mayur Tellez MD : 1965 AGE: 53 SEX: F [place], [place] [address] : Y.998 2 PHONE #: [phone] EXAM DATE: 05/27/2019 STATUS: ADM IN FAX #: [phone] RAD #: [id number] D/C DT PAGE 2 Signed ReportGLUBED 2019-05-27 11:00:00 Test Item Value Reference Range Interpretation Comments GLUBED (test code = GLUBED) 120 mg/dL 60-125 N BASIC METABOLIC [id number] 16:57:00 Test Item Value Reference Range Interpretation Comments SODIUM (test code = 136 mmol/L 136-145 N NA) POTASSIUM (test code = 4.1 mmol/L 3.5-5.1 N K) CHLORIDE (test code = 100.0 mmol/L 98-107 N CL) CARBON DIOXIDE (test 26.9 mmol/L 21-32 N code = CO2) GLUCOSE (test code = 136 mg/dL 70-110 H GLU) BLOOD UREA NITROGEN 15 mg/dL 7-18 N (test code = BUN) GLOMERULAR FILTRATION 67.5 >60 Unit o f measure: RATE (test code = GFR) mL/mi n/1.73 [id number] Range:Healthy Adults >90 mL/min/1.73 m2 For Chronic Kidney Disease: St age II Mild Decrease in GFR 60-90 St age III Moderate Decrease in GFR 30-59 Stage IV Severe Decre ase in GFR 15- 29 Stage V Kidney Failure <15 CREATININE (test code 0.88 mg/dL 0.55-1.30 N = CREAT) CALCIUM (test code = 8.9 mg/dL 8.2-10.1 N CA) URINALYSIS [id number] 16:47:00 Test Item Value Reference Range Interpretation Comments UA COLOR (test code = COLU) YELLOW YELLOW UA APPEARANCE (test code = SL CLOUDY CLEAR A APPU) UA GLUCOSE DIPSTICK (test code 2+ NEGATIVE A = DGLUU) UA BILIRUBIN DIPSTICK (test NEGATIVE NEGATIVE code = BILU) UA KETONE DIPSTICK (test code TRACE mg/dL NEG = KETU) UA SPECIFIC GRAVITY (test code 1.025 1.003-1.035 = SGU) UA BLOOD DIPSTICK (test code = NEGATIVE NEGATIVE GONZALO) UA PH DIPSTICK (test code = 5.5 >6.5 POLO) UA PROTEIN DIPSTICK (test code NEGATIVE mg/dL NEG = PROU) UA UROBILINIOGEN DIPSTICK 0.2 mg/dL NORM (test code = URO) UA NITRITE DIPSTICK (test code POSITIVE NEG A = BUD) UA LEUKOCYTE ESTERASE DIPSTICK NEGATIVE NEGATIVE (test code = LEUU) UA WBC (test code = WBCU) 5-10 /HPF 0-2 UA RBC (test code = RBCU) 0-2 /HPF 0-2 UA EPITHELIAL CELLS (test code FEW /HPF 0-2 = EPIU) UA BACTERIA (test code = BACU) MANY /HPF NONE CBC W/AUTO [id number] 16:31:00 Test Item Value Reference Range Interpretation Comments WHITE BLOOD CELL (test code = WBC) 10.0 K/mm3 5.8-11.0 N RED BLOOD CELL (test code = RBC) 4.73 M/mm3 4.2-5.4 N HEMOGLOBIN (test code = HGB) 13.3 g/dL 12-16 N HEMATOCRIT (test code = HCT) 41.2 % 37-47 N MEAN CELL VOLUME (test code = MCV) 87 fL 80-98 N MEAN CELL HGB (test code = MCH) 28.1 pg 27-34 N MEAN CELL HGB CONCENTRATION (test 32.3 g/dL 30.8-34.1 N code = MCHC) RED CELL DISTRIBUTION WIDTH (test 13.7 % 11-16 N code = RDW) PLT (test code = PLT) 341 K/mm3 130-400 N MEAN PLATELET VOLUME (test code = 10.7 fL 8.9-12.1 N MPV) NEUTROPHIL % (test code = NT%) 51.7 % 45-70 N LYMPHOCYTE % (test code = LY%) 39.9 % 20-40 N MONOCYTE % (test code = MO%) 6.1 % 3-10 N EOSINOPHIL % (test code = EO%) 1.6 % 1-5 N BASOPHIL % (test code = BA%) 0.5 % 0.0-1.1 N NEUTROPHIL # (test code = NT#) 5.18 K/mm3 2.00-7.50 N LYMPHOCYTE # (test code = LY#) 4.00 K/mm3 1.50-4.00 N MONOCYTE # (test code = MO#) 0.61 K/mm3 0.2-0.8 N EOSINOPHIL # (test code = EO#) 0.16 K/mm3 0.04-0.4 N BASOPHIL # (test code = BA#) 0.05 K/mm3 0.02-0.10 N MANUAL DIFF REQUIRED (test code = NO MANUAL DIFF MDIFF) NUCLEATED RED BLOOD CELL (test 0 % 0-0 N code = NRBC) - MRI L-SPINE W/O [id number] 11:41:00 Patient Name: MERA LABOY Unit No: [id number] EXAMS: CPT CODE: [id number] MRI L-SPINE W/O CONT [id number] MRI OF THE LUMBAR SPINE: DIAGNOSIS: 1. At L1-2, no disc bulge or herniation. No central canal or foraminal stenosis.. 2. At L2-3, no disc bulge or herniation. No central canal or foraminal stenosis. Mild facet arthropathy. 3. At L3-4, no disc bulge or herniation. No central canal or foraminal stenosis. Mild to moderate bilateral facet arthropathy. 4. At L4-5, disc desiccation. Mild centralcanal stenosis. Mild bilateral facet arthropathy. Mild foraminal stenosis. 5. At L5-S1, patient status post anterior discectomy and laminectomy. Mild foraminal stenosis. 6. The lowest functional level is S1-2. COMMENT: COMPARISON:The current exam is compared to a previous exam dated April 07, 2015. SagittalT1, T2 and STIR and axial T1 and T2-weighted sequences are obtained of the lumbar spine. The lumbar vertebrae are within normal limits in signal. The findings are as above. The conus is in the expected location. at 1141 Reported and signed by: Cari Ortiz MD CC: Teodoro Hoang M.D. Technologist: Gayatri Gonzales, RT(R) Transcribed D/ (1141) DominiqueG [facility] [address] [facility] Mayur Tellez MD : 1965 AGE: 53 SEX: F [place] [address] LOC: Y.MRI PHONE #: [phone] EXAM DATE: 02/12/2019 STATUS: DEP CLI FAX #: [phone] RAD #: [id number] D/C DT PAGE 1 Signed Report Patient Name: MERA LABOY Unit No: [id number] EXAMS: CPT CODE: [id number] MRI L-SPINE W/O CONT [id number] <Continued> Orig Print D/T: S: 02/13/2019 (1144) [facility] NAME: MERA LABOY [address] [facility] PHYS: Mayur Tellez MD : 1965 AGE: 53 SEX: F [place] [address] LOC: Y.MRI PHONE #: [phone] EXAM DATE: 02/12/2019 STATUS: DEP CLI FAX #: [phone] RAD #: [id number] D/C DT PAGE 2 Signed [id number] 13:10:00 Test Item Value Reference Range Interpretation Comments GLUBED (test code = GLUBED) 163 mg/dL 60-125 H [id number] 10:36:00 Test Item Value Reference Range Interpretation Comments GLUBED (test code = GLUBED) 166 mg/dL 60-125 H BASIC METABOLIC [id number] 07:04:00 Test Item Value Reference Range Interpretation Comments SODIUM (test code = 139 mmol/L 136-145 N NA) POTASSIUM (test code = 5.1 mmol/L 3.5-5.1 N K) CHLORIDE (test code = 105.0 mmol/L 98-107 N CL) CARBON DIOXIDE (test 23.1 mmol/L 21-32 N code = CO2) GLUCOSE (test code = 194 mg/dL 70-110 H GLU) BLOOD UREA NITROGEN 16 mg/dL 7-18 N (test code = BUN) GLOMERULAR FILTRATION 75.3 >60 Unit o f measure: RATE (test code = GFR) mL/mi n/1.73 [id number] Range:Healthy Adults >90 mL/min/1.73 m2 For Chronic Kidney Disease: St age II Mild Decrease in GFR 60-90 St age III Moderate Decrease in GFR 30-59 Stage IV Severe Decre ase in GFR 15- 29 Stage V Kidney Failure <15 CREATININE (test code 0.80 mg/dL 0.55-1.30 N = CREAT) CALCIUM (test code = 8.4 mg/dL 8.2-10.1 N CA) HGB [id number] 05:50:00 Test Item Value Reference Range Interpretation Comments HEMOGLOBIN (test code = HGB) 11.8 g/dL 12-16 L HEMATOCRIT (test code = HCT) 37.6 % 37-47 N [id number] 22:03:00 Test Item Value Reference Range Interpretation Comments GLUBED (test code = GLUBED) 330 mg/dL 60-125 H [id number] 20:35:00 Test Item Value Reference Range Interpretation Comments GLUBED (test code = GLUBED) 291 mg/dL 60-125 H [id number] 11:33:00 Test Item Value Reference Range Interpretation Comments GLUBED (test code = GLUBED) 102 mg/dL 60-125 N [id number] 11:33:00 Test Item Value Reference Range Interpretation Comments GLUBED (test code = GLUBED) 97 mg/dL 60-125 N URINALYSIS [id number] 13:06:00 Test Item Value Reference Range Interpretation Comments UA COLOR (test code = COLU) YELLOW YELLOW UA APPEARANCE (test code = SL CLOUDY CLEAR A APPU) UA GLUCOSE DIPSTICK (test code 3+ NEGATIVE A = DGLUU) UA BILIRUBIN DIPSTICK (test NEGATIVE NEGATIVE code = BILU) UA KETONE DIPSTICK (test code NEGATIVE mg/dL NEG = KETU) UA SPECIFIC GRAVITY (test code <=1.005 1.003-1.035 = SGU) UA BLOOD DIPSTICK (test code = NEGATIVE NEGATIVE GONZALO) UA PH DIPSTICK (test code = 5.5 >6.5 POLO) UA PROTEIN DIPSTICK (test code NEGATIVE mg/dL NEG = PROU) UA UROBILINIOGEN DIPSTICK 0.2 mg/dL NORM (test code = URO) UA NITRITE DIPSTICK (test code POSITIVE NEG A = BUD) UA LEUKOCYTE ESTERASE DIPSTICK NEGATIVE NEGATIVE (test code = LEUU) UA WBC (test code = WBCU) NONE SEEN /HPF 0-2 UA RBC (test code = RBCU) NONE SEEN /HPF 0-2 UA EPITHELIAL CELLS (test code NONE SEEN /HPF 0-2 = EPIU) UA BACTERIA (test code = BACU) MANY /HPF NONE COMPREHENSIVE METABOLIC [id number] 13:01:00 Test Item Value Reference Range Interpretation Comments SODIUM (test code = 140 mmol/L 136-145 N NA) POTASSIUM (test code = 4.6 mmol/L 3.5-5.1 N K) CHLORIDE (test code = 105.0 mmol/L 98-107 N CL) CARBON DIOXIDE (test 26.3 mmol/L 21-32 N code = CO2) GLUCOSE (test code = 254 mg/dL 70-110 H GLU) BLOOD UREA NITROGEN 16 mg/dL 7-18 N (test code = BUN) GLOMERULAR FILTRATION 68.4 >60 Unit o f measure: RATE (test code = GFR) mL/mi n/1.73 [id number] Range:Healthy Adults >90 mL/min/1.73 m2 For Chronic Kidney Disease: St age II Mild Decrease in GFR 60-90 St age III Moderate Decrease in GFR 30-59 Stage IV Severe Decre ase in GFR 15- 29 Stage V Kidney Failure <15 CREATININE (test code 0.87 mg/dL 0.55-1.30 N = CREAT) TOTAL PROTEIN (test 6.9 g/dL 6.4-8.2 N code = PROT) ALBUMIN (test code = 3.3 g/dL 3.4-5.0 L ALB) GLOBULIN (test code = 3.6 g/dL 2.2-4.2 N GLOB) ALBUMIN/GLOBULIN RATIO 0.9 0.7-2.0 N (test code = A/G) CALCIUM (test code = 8.8 mg/dL 8.2-10.1 N CA) BILIRUBIN TOTAL (test 0.23 mg/dL 0.2-1.00 N code = BILT) SGOT/AST (test code = 27.0 U/L 15-37 N AST) SGPT/ALT (test code = 32.0 U/L 12-78 N Please note new ALT) normal range. ALKALINE PHOSPHATASE 102 U/L 46-116 N TOTAL (test code = ALKP) CBC W/AUTO [id number] 12:58:00 Test Item Value Reference Range Interpretation Comments WHITE BLOOD CELL (test code = WBC) 9.0 K/mm3 5.8-11.0 N RED BLOOD CELL (test code = RBC) 4.43 M/mm3 4.2-5.4 N HEMOGLOBIN (test code = HGB) 12.7 g/dL 12-16 N HEMATOCRIT (test code = HCT) 40.0 % 37-47 N MEAN CELL VOLUME (test code = MCV) 90 fL 80-98 N MEAN CELL HGB (test code = MCH) 28.7 pg 27-34 N MEAN CELL HGB CONCENTRATION (test 31.8 g/dL 30.8-34.1 N code = MCHC) RED CELL DISTRIBUTION WIDTH (test 15.1 % 11-16 N code = RDW) PLT (test code = PLT) 331 K/mm3 130-400 N MEAN PLATELET VOLUME (test code = 10.5 fL 8.9-12.1 N MPV) NEUTROPHIL % (test code = NT%) 53.9 % 45-70 N LYMPHOCYTE % (test code = LY%) 38.7 % 20-40 N MONOCYTE % (test code = MO%) 5.1 % 3-10 N EOSINOPHIL % (test code = EO%) 1.6 % 1-5 N BASOPHIL % (test code = BA%) 0.4 % 0.0-1.1 N NEUTROPHIL # (test code = NT#) 4.86 K/mm3 2.00-7.50 N LYMPHOCYTE # (test code = LY#) 3.49 K/mm3 1.50-4.00 N MONOCYTE # (test code = MO#) 0.46 K/mm3 0.2-0.8 N EOSINOPHIL # (test code = EO#) 0.14 K/mm3 0.04-0.4 N BASOPHIL # (test code = BA#) 0.04 K/mm3 0.02-0.10 N MANUAL DIFF REQUIRED (test code = NO MANUAL DIFF MDIFF) NUCLEATED RED BLOOD CELL (test 0 % 0-0 N code = NRBC) PROTHROMBIN [id number] 12:52:00 Test Item Value Reference Range Interpretation Comments PROTHROMBIN TIME 11.3 secs 10.1-12.5 N PATIENT (test code = PTP) INTERNATIONAL NORMAL 1.00 <2.0 RECOMME NDED THERAPEUTIC RATIO (test code = RANGE FOR ORAL INR) ANTICOAGULANTTR EATMENT: CONDI TION INRProphylaxis of venous thrombos is in 2.0 - 3.0 high-risk medic al or surgical patientsTreatme nt of venous thrombos is 2.0 - 3.0Prevention o f embolism 2.0 - 3.0Prevention o f recurrent embol ism, or 3.0 - 4. 5 patients with mechanical pros thetic intravascular v carson IS PATIENT ON ANTICOAGULANTS ? NHas Lab been notified if Patient is on Heparin Drip? NOTHROMBOPLASTIN TIME [id number] 12:52:00 Test Item Value Reference Range Interpretation Comments PTT ACTIVATED (test code = APTT) 28.6 secs 24.9-37.0 N IS PATIENT ON ANTICOAGULANTS ? NHas Lab been notified if Patient is on Heparin Drip? NOSYNOVIAL FLD CELL [id number] 14:23:00 Test Item Value Reference Range Interpretation Comments SYNOVIAL FLD XANTHOCHROMIC LT. YELLOW A COLOR (test code = COLSY) SYNOVIAL FLD HAZY CLEAR APPEARANCE (test code = APPSY) SYNOVIAL FLD 1.0 mL VOLUME (test code = VOLSY) SYNOVIAL FLD WBC 877.000 /MM3 0-200 H (test code = WBCSY) SYNOVIAL FLD RBC 8000.000 /mm3 0-2 H NOTE: An automated (test code = method is now b eing RBCSY) used to determinesynovi al fluid WBC and RBC cou nts. The differential wi llstill be performed ma roberto. SYNOVIAL FLD 2 % 0-25 N POLY (test code = POLYSY) SYNOVIAL FLD 64 % 0-78 N LYMPHOCYTE (test code = LYMPHSY) SYNOVIAL FLD 33 % 0-71 N MONOCYTE (test code = MONOSY) SYNOVIAL FLD EOSINOPHILS = 1 OTHER CELL (test code = OTHERSY) SPECIMEN COMMENT: ASPIRATION RT KNEE DONE BY DR. SANCHEZSYNOVIAL FLD CELL CT/DIFF 2018-12-20 14:01:00 Test Item Value Reference Range Interpretation Comments SYNOVIAL FLD COLOR LT. YELLOW (test code = COLSY) SYNOVIAL FLD CLEAR APPEARANCE (test code = APPSY) SYNOVIAL FLD mL VOLUME (test code = VOLSY) SYNOVIAL FLD WBC 877.000 /MM3 0-200 H (test code = WBCSY) SYNOVIAL FLD RBC 8000.000 0-2 H NOTE: An a utomated (test code = /mm3 method is now b eing used RBCSY) to determinesyn ovial fluid WBC and R BC counts. The dif ferential willstill be pe rformed manually. SPECIMEN COMMENT: ASPIRATION RT KNEE DONE BY DR. SANCHEZ- XR FLUORO [id number] 13:12:00 Patient Name: MERA LABOY Unit No: [id number] EXAMS: CPT CODE: [id number] XR FLUORO NDL [id number] Fluoroscopically guided right knee aspiration FINDINGS: After informed consent was obtained a 22- gauge needle is inserted into the right knee underfluoroscopic guidance using sterile technique. 3 cc of clear pink fluid was aspirated. This is sent to the lab for analysis. The patient tolerated the procedure well. 6 seconds of fluoroscopy time was used on this exam. IMPRESSION: Fluoroscopically guided right knee aspiration. at 1312 Reported and signed by: Andrew Sanchez M.D. CC: Triston Thayer MD; [place] Technologist: Cathy Rodas RT.(R) Transcribed D/ (1312) [email or web address] [facility] NAME: MERA LABOY [address] [facility] PHYS: Brayan Xavier : 1965 AGE: 53 SEX: F [id number] LOC: Y.RAD PHONE #: [phone] EXAM DATE: 12/20/2018 STATUS: REG CLI FAX #: [phone] RAD #: [id number] D/C DT PAGE 1 Signed Report Patient Name: MERA LABOY Unit No: [id number] EXAMS: CPT CODE: [id number] XR FLUORO NDL [id number] <Continued> Orig Print D/T: S: 12/20/2018 (1315) [facility] NAME: MERA LABOY [address] [facility] PHYS: GOOBEY - YongSony veloz : 1965 AGE: 53 SEX: F [place], [place] [address] LOC: Y.RAD PHONE #: [phone] EXAM DATE: 12/20/2018 STATUS: REG CLI FAX #: [phone] RAD #: [id number] D/C DT PAGE 2 Signed [id number] 18:01:00Negative (08/18/18 12:01 PM)[facility]
[2020-12-04 16:50] LABS: Absolute Lymphocytes (CBC) 3.7 K/uL (0.7-4.9); Basophils % 1.3 % (0-1.3); Hematocrit 41.4 % (36.0-45.0); Lymphocytes % 41.4 % (15.3-44.8); RBC Red Blood Cell Count 4.79 M/uL (3.86-4.86)
[2020-12-04 17:04] LABS: ALT/SGPT 44 U/L (12-78); AST/SGOT 33 U/L (15-37); Albumin 3.3 g/dL (3.4-5.0); Alkaline Phosphatase 119 U/L (45-117); BUN Blood Urea Nitrogen 9 mg/dL (7-18); Bicarbonate 27 mmol/L (21-32); Bilirubin Direct < 0.1 mg/dL (0-0.2); Bilirubin Total 0.2 mg/dL (0.2-1.0); Glucose Level 316 mg/dL (74-106); Lipase 88 U/L (73-393); Potassium 4.1 mmol/L (3.5-5.1); Protein, Total 8.1 g/dL (6.4-8.2); Sodium Level 138 mmol/L (136-145)
[2020-12-04] MEDS ORDERED: MORPHINE 2 MG/ML SYR ONE (17:04)
[2020-12-04] MEDS ORDERED: NA CHLORIDE 0.9% 1,000 ML ONE (17:04)
[2020-12-04] MEDS ORDERED: ONDANSETRON 4 MG/2 ML VIAL ONE (17:04)
--- NOTE | 2020-12-04 17:10 | RAD REPORT ---
EXAM DESCRIPTION: CT - Abdomen Pelvis W Contrast - 12/04/2020 4:58 pm CLINICAL HISTORY: Abdominal pain COMPARISON: none. TECHNIQUE: Computed axial tomography of the abdomen pelvis was obtained. 100 cc Isovue-300 was admin istered intravenously. Oral contrast was not requested which limits evaluation of bowel. All CT scans are performed using dose optimization technique as appropriate and may include automated exposure control or mA/KV adjustment according to patient size. FINDINGS: Fatty liver Spleen, pancreas, adrenal and kidneys appear unremarkable. There is no evidence of diverticulitis. Mild dilatation of several fluid-filled loops of jejunum Tiny umbilical hernia. Postsurgical changes involve lumbar spine. Postsurgical changes involve stomac h. Gallbladder and uterus have been removed. IMPRESSION: Mild dilatation of several fluid-filled loops of jejunum may indicate an enteritis
--- NOTE | 2020-12-04 17:51 | ER ---
Nurse's Notes [facility] Name: Abigail Goodrich Age: 55 yrs Sex: Female : 1965 Arrival Date: 12/04/2020 Time: 16:02 Bed 18 Private MD: Diagnosis: Unspecified abdominal pain Presentation: 12/04 16:09 Chief complaint: Upper abdominal pain that started on the right side 1 week ago, now hb pain is in both LUQ and RUQ. Also c/o diarrhea. Coronavirus screen: At this time, the client does not indicate any symptoms associated with coronavirus-19. Ebola Screen: No symptoms or risks identified at this time. Initial Sepsis Screen: Does the patient meet any 2 criteria? No. Patient's initial sepsis screen is negative. Does the patient have a suspected source of infection? No. Patient's initial sepsis screen is negative. Risk Assessment: Do you want to hurt yourself or someone else? Patient reports no desire to harm self or others. Onset of symptoms was November 27, 2020. 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 - Social history:: Smoking status: Patient denies any tobacco usage or history of. Screenin:48 Abuse screen: Denies threats or abuse. Denies injuries from another. Nutritional zb screening: No deficits noted. Tuberculosis screening: No symptoms or risk factors identified. Fall Risk None identified. Assessment: 16:48 General: Appears in no apparent distress. uncomfortable, Behavior is calm, cooperative, zb appropriate for age. Pain: Complains of pain in right upper quadrant, left upper quadrant and right lower quadrant Pain currently is 4 out of 10 on a pain scale. Quality of pain is described as aching, dull, pressure, sharp, tender, Noted to be guarding. Neuro: Level of Consciousness is awake, alert, obeys commands, Oriented to person, place, time, situation. Cardiovascular: Capillary refill < 3 seconds in bilateral fingers. Respiratory: Airway is patent Respiratory effort is even, unlabored, Respiratory pattern is regular, symmetrical. GI: Abdomen is round obese, Bowel sounds present X 4 quads. Abdomen is tender to palpation in left upper quadrant and right lower quadrant. Derm: Skin is intact, is healthy with good turgor, Skin is dry, Skin is normal. Musculoskeletal: Circulation, motion, and sensation intact. Range of motion: intact in all extremities. 17:49 Reassessment: Patient appears in no apparent distress at this time. Patient and/or zb family updated on plan of care and expected duration. Pain level reassessed. Patient is alert, oriented x 3, equal unlabored respirations, skin warm/dry/pink. ecp at bedside discussing care. 18:09 Reassessment: d/c pending infusion completion. zb 19:00 Reassessment: d/c pending completion of IV fluids. zb 20:00 Reassessment: Patient appears in no apparent distress at this time. Patient and/or zb family updated on plan of care and expected duration. Pain level reassessed. Patient is alert, oriented x 3, equal unlabored respirations, skin warm/dry/pink. Vital Signs: 16:09 BP 122 / 89; Pulse 81; Resp 16; Temp 97.1; Pulse Ox 100% on R/A; Pain 7/10; hb 19:00 BP 119 / 74; Pulse 87; Resp 16; Pulse Ox 100% on R/A; zb 20:04 BP 120 / 80; Pulse 78; Resp 16; Pulse Ox 100% on R/A; zb ED Course: 16:02 Patient arrived in ED. mr 16:07 Carlos Meyer NP is PHCP. pm1 16:07 Kwan Putnam MD is Attending Physician. pm1 16:11 Triage completed. hb 16:12 Arm band placed on. hb 16:20 Inserted saline lock: 20 gauge in right antecubital area, using aseptic technique. zb Blood collected. 16:24 Brown, Dawn, RN is Primary Nurse. zb 16:50 Patient has correct armband on for positive identification. Placed in gown. Bed in low zb position. Call light in reach. Adult w/ patient. Pulse ox on. NIBP on. Door closed. Noise minimized. 16:58 CT Abd/Pelvis - IV Contrast Only In Process Unspecified. EDMS 19:00 Urine collected: clean catch specimen, clear, funmilayo colored. Patient maintains SpO2 jp3 saturation greater than 95% on room air. 20:00 No provider procedures requiring assistance completed. IV discontinued, intact, zb bleeding controlled, No redness/swelling at site. Pressure dressing applied. Administered Medications: 16:47 Drug: morphine 2 mg {Note: RASS +0.} Route: IVP; Site: right antecubital; zb 17:48 Follow up: Response: No adverse reaction; Marked relief of symptoms; Pain is decreased; zb RASS: Alert and Calm (0) 16:47 Drug: Zofran (Ondansetron) 4 mg Route: IVP; Site: right antecubital; zb 17:49 Follow up: Response: No adverse reaction; Marked relief of symptoms; Nausea is decreasedzb 16:48 Drug: NS 0.9% 1000 ml Route: IV; Rate: 1000 ml; Site: right antecubital; zb 20:00 Follow up: Response: No adverse reaction; IV Status: Completed infusion; IV Intake: zb 1000ml 18:07 Drug: Cipro (ciprofloxacin) 500 mg Route: PO; zb 19:00 Follow up: Response: No adverse reaction zb 18:07 Drug: Flagyl (metroNIDAZOLE) 500 mg Volume: 100 ml; Route: IVPB; Rate: 200 ml/hr; zb Infused Over: 30 mins; Site: right antecubital; 19:00 Follow up: Response: No adverse reaction; IV Intake: 100ml zb 18:07 Drug: Bentyl (dicyclomine) 20 mg Route: PO; zb 19:00 Follow up: Response: No adverse reaction; Marked relief of symptoms zb Intake: 19:00 IV: 100ml; Total: 100ml. zb 20:00 IV: 1000ml; Total: 1100ml. zb Outcome: 17:51 Discharge ordered by . pm1 20:00 Discharged to home ambulatory, with family. zb 20:00 Condition: stable 20:00 Discharge instructions given to patient, family, Instructed on discharge instructions, follow up and referral plans. medication usage, Demonstrated understanding of instructions, follow-up care, medications, Prescriptions given X 3. 20:04 Patient left the ED. cecelia Signatures: Dispatcher [employer] ED[facility] Kaylene Villasenor Carlos, NIC PULVERIZER FEEDER pm1 Jessica Cotto RN RN Carter French jp3 Dawn Mccormick RN RN zb
--- NOTE | 2020-12-04 17:51 | EDPHYS ---
Physician Documentation [facility] Name: Abigail Goodrich Age: 55 yrs Sex: Female : 1965 Arrival Date: 12/04/2020 Time: 16:02 Bed 18 Private MD: ED Physician Kwan Putnam HPI: 12/04 16:22 This 55 yrs old Female presents to ER via Ambulatory with complaints of pm1 Abdominal Pain. 16:22 The patient presents with abdominal pain. pm1 16:22 Onset: The symptoms/episode began/occurred 1 week(s) ago. The symptoms do not radiate. pm1 Associated signs and symptoms: Pertinent positives: diarrhea, has been present since she had her gallbladder removed. Present for many years, Pertinent negatives: chest pain, fever, nausea, shortness of breath, vomiting. The symptoms are described as sharp. Modifying factors: The symptoms are alleviated by nothing, the symptoms are aggravated by nothing. Severity of pain: in the emergency department the pain is actually worse. The patient has experienced a previous episode, last year, and the symptoms today are exactly the same, diverticulitis. The patient has not recently seen a physician. 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 - Social history:: Smoking status: Patient denies any tobacco usage or history of. ROS: 16:22 Constitutional: Negative for fever, chills, and weight loss, Cardiovascular: Negative pm1 for chest pain, palpitations, and edema, Respiratory: Negative for shortness of breath, cough, wheezing, and pleuritic chest pain. 16:22 Back: Negative for injury and pain, : Negative for injury, bleeding, discharge, and swelling, MS/Extremity: Negative for injury and deformity, Skin: Negative for injury, rash, and discoloration, Neuro: Negative for headache, weakness, numbness, tingling, and seizure. 16:22 Abdomen/GI: Positive for abdominal pain, diarrhea, Negative for nausea and vomiting, constipation. 16:22 All other systems are negative. Exam: 16:22 Constitutional: This is a well developed, well nourished patient who is awake, alert, pm1 and in no acute distress. Head/Face: Normocephalic, atraumatic. Vital Signs: 16:09 BP 122 / 89; Pulse 81; Resp 16; Temp 97.1; Pulse Ox 100% on R/A; Pain 7/10; hb 19:00 BP 119 / 74; Pulse 87; Resp 16; Pulse Ox 100% on R/A; zb 20:04 BP 120 / 80; Pulse 78; Resp 16; Pulse Ox 100% on R/A; zb MDM: 16:07 Patient medically screened. pm1 16:15 Data reviewed: vital signs. Data interpreted: Pulse oximetry: on room air is 100 %. pm1 Interpretation: normal. 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 17:51 ED course: Discussed results and impression with patient. Patient reports symptoms same pm1 as prior presentation of diverticulitis last year. She would like to have treatment as if early diverticulitis, therefore will prescribe the patient antibiotics. 12/04 16:22 Order name: Basic Metabolic Panel; Complete Time: 17:13 pm1 12/04 16:22 Order name: CBC with Diff; Complete Time: 17:13 pm1 12/04 16:22 Order name: Hepatic Function; Complete Time: 17:13 pm1 12/04 16:22 Order name: Lipase; Complete Time: 17:13 pm1 12/04 16:22 Order name: CT Abd/Pelvis - IV Contrast Only; Complete Time: 17:13 pm1 12/04 19:00 Order name: Urine Dipstick-Ancillary; Complete Time: 19:57 EDMS 12/04 16:22 Order name: Urine Dipstick-Ancillary (obtain specimen); Complete Time: 19:01 pm1 12/04 16:22 Order name: IV Saline Lock; Complete Time: 16:32 pm1 12/04 16:22 Order name: Labs collected and sent; Complete Time: 16:32 pm1 Administered Medications: 16:47 Drug: morphine 2 mg {Note: RASS +0.} Route: IVP; Site: right antecubital; zb 17:48 Follow up: Response: No adverse reaction; Marked relief of symptoms; Pain is decreased; zb RASS: Alert and Calm (0) 16:47 Drug: Zofran (Ondansetron) 4 mg Route: IVP; Site: right antecubital; zb 17:49 Follow up: Response: No adverse reaction; Marked relief of symptoms; Nausea is decreasedzb 16:48 Drug: NS 0.9% 1000 ml Route: IV; Rate: 1000 ml; Site: right antecubital; zb 20:00 Follow up: Response: No adverse reaction; IV Status: Completed infusion; IV Intake: zb 1000ml 18:07 Drug: Cipro (ciprofloxacin) 500 mg Route: PO; zb 19:00 Follow up: Response: No adverse reaction zb 18:07 Drug: Flagyl (metroNIDAZOLE) 500 mg Volume: 100 ml; Route: IVPB; Rate: 200 ml/hr; zb Infused Over: 30 mins; Site: right antecubital; 19:00 Follow up: Response: No adverse reaction; IV Intake: 100ml zb 18:07 Drug: Bentyl (dicyclomine) 20 mg Route: PO; zb 19:00 Follow up: Response: No adverse reaction; Marked relief of symptoms zb Disposition: 12/04/20 17:51 Discharged to Home. Impression: Unspecified abdominal pain. - Condition is Stable. - Discharge Instructions: Abdominal Pain, Adult. - Prescriptions for Bentyl 20 mg Oral Tablet - take 1 tablet by ORAL route every 6 hours As needed; 20 tablet. Flagyl 500 mg Oral Tablet - take 1 tablet by ORAL route every 8 hours for 10 days; 30 tablet. Cipro 500 mg Oral Tablet - take 1 tablet by ORAL route every 12 hours for 10 days; 20 tablet. - Medication Reconciliation Form, Thank You Letter, Antibiotic Education, Prescription Opioid Use form. - Follow up: Emergency Department; When: As needed; Reason: Worsening of condition. Follow up: Private Physician; When: 2 - 3 days; Reason: Recheck today's complaints, Continuance of care, Re-evaluation by your physician. - Problem is new. - Symptoms have improved. Signatures: Dispatcher [employer] EDMS Carlos Meyer NP MEDICAL RECEPTIONIST pm1 Jessica Cotto RN RN Dawn Mccormick RN RN zb Corrections: (The following items were deleted from the chart) 20:04 17:51 12/04/2020 17:51 Discharged to Home. Impression: Unspecified abdominal pain. zb Condition is Stable. Forms are Medication Reconciliation Form, Thank You Letter, Antibiotic Education, Prescription Opioid Use. Follow up: Emergency Department; When: As needed; Reason: Worsening of condition. Follow up: Private Physician; When: 2 - 3 days; Reason: Recheck today's complaints, Continuance of care, Re-evaluation by your physician. Problem is new. Symptoms have improved. pm1
[2020-12-04] MEDS ORDERED: CIPROFLOXACIN HCL 500 MG TAB ONE (18:17)
[2020-12-04] MEDS ORDERED: DICYCLOMINE HCL 10 MG CAP ONE (18:17)
[2020-12-04] MEDS ORDERED: METRONIDAZOLE 500mg IVPB 500 MG/100 ML BAG IV ONE (18:18)
[2020-12-04 19:00] LABS: Urine Blood Negative (Negative); Urine Glucose 2+ (Negative); Urine Protein Negative (Negative); Urine Specific Gravity 1.015 (1.005-1.030)
[2020-12-04 20:26] VITALS: TEMP 97.1; O2SAT 100
[2020-12-04 20:29] VITALS: BP 120/80
== END 2020-12-04 20:04 | disposition home or self-care (01) ==
LOC: ER 15:56
DX: R10.9 Unspecified abdominal pain (principal); R19.7 Diarrhea, unspecified; I10 Essential (primary) hypertension; Z88.5 Allergy status to narcotic agent; Z88.8 Allergy status to other drugs, medicaments and biological substances; Z91.040 Latex allergy status; Z91.048 Other nonmedicinal substance allergy status
CPT/HCPCS: 85025; 80048; 36415; 82565; 80076; 81003; 83690; 74177; Q9967; J2270; J7030; J2405; 96361; 96374; 96375; 99284